=== PATIENT | female | born 1995 | race Caucasian/White ===

== ENCOUNTER → 2017-09-23 | Outpatient (CLI) | payer OTHER ==
[~2017-09-23] MED LIST: LEVO50TA4 PO
[2017-09-23 19:07] LABS: BASO % 0.7 % (0.0-1.0); EOS # 0.2 10^3/uL (0.0-0.50); EOS % 2.6 % (0.0-3.0); IMMATURE GRANULOCYTE % 0.7 % (0-0); LYMPH # 1.9 10^3/uL (1.5-6.5); LYMPH % 33.3 % (24.0-44.0); MEAN CORPUSCULAR HGB CONC 32.7 g/dl (32.0-36.5); MEAN CORPUSCULAR VOLUME 88.5 fl (80.0-96.0); MONO # 0.5 10^3/uL (0.0-0.8); MONO % 8.4 % (0.0-5.0); NEUTROPHILS # 3.1 10^3/uL (1.8-7.7); NEUTROPHILS % 54.3 % (36.0-66.0); PLATELET COUNT, AUTOMATED 282 10^3/uL (150-450); WHITE BLOOD COUNT 5.7 10^3/uL (4.0-10.0)
[2017-09-23 19:15] LABS: ALBUMIN 3.2 GM/DL (3.2-5.2); ALBUMIN/GLOBULIN RATIO 0.94 (1.00-1.93); ALKALINE PHOSPHATASE 63 U/L (45-117); ALT/SGPT 20 U/L (12-78); ANION GAP 6 MEQ/L (8-16); AST/SGOT 13 U/L (7-37); BILIRUBIN,TOTAL 0.2 MG/DL (0.2-1.0); BLOOD UREA NITROGEN 19 MG/DL (7-18); CARBON DIOXIDE LEVEL 26 MEQ/L (21-32); CHLORIDE LEVEL 107 MEQ/L (98-107); CHOLESTEROL LEVEL 182 MG/DL (<200); CREATININE FOR GFR 0.83 MG/DL (0.55-1.02); FERRITIN 8 NG/ML (8-252); GLOMERULAR FILTRATION RATE > 60.0 (>60); GLUCOSE, FASTING 103 MG/DL (70-105); PERCENT SATURATION 8.9 % (13.2-45.0); POTASSIUM SERUM 4.5 MEQ/L (3.5-5.1); SODIUM LEVEL 139 MEQ/L (136-145); TOTAL IRON BINDING CAPACITY 493 UG/DL (250-450); TOTAL PROTEIN 6.6 GM/DL (6.4-8.2); TRIGLYCERIDES LEVEL 106 MG/DL (<150)
== END ==
LOC: M WUC 09:03
PROVIDERS: ATTEND Physician Assistant
DX: N92.0 Excessive and frequent menstruation with regular cycle (principal); Z13.220 Encounter for screening for lipoid disorders; E03.9 Hypothyroidism, unspecified; Z13.21 Encounter for screening for nutritional disorder

== ENCOUNTER → 2017-10-30 | Outpatient (CLI) | payer OTHER ==
[2017-10-30 12:02] LABS: BASO # 0.1 10^3/uL (0.0-0.2); BASO % 0.8 % (0.0-1.0); EOS # 0.2 10^3/uL (0.0-0.50); EOS % 2.8 % (0.0-3.0); IMMATURE GRANULOCYTE % 1.3 % (0-0); LYMPH # 2.1 10^3/uL (1.5-6.5); LYMPH % 32.7 % (24.0-44.0); MEAN CORPUSCULAR HGB CONC 33.3 g/dl (32.0-36.5); MEAN CORPUSCULAR VOLUME 87.2 fl (80.0-96.0); MONO # 0.5 10^3/uL (0.0-0.8); MONO % 8.5 % (0.0-5.0); NEUTROPHILS # 3.4 10^3/uL (1.8-7.7); NEUTROPHILS % 53.9 % (36.0-66.0); PLATELET COUNT, AUTOMATED 291 10^3/uL (150-450); RED CELL DISTRIBUTION WIDTH 13.5 % (11.5-14.5); WHITE BLOOD COUNT 6.3 10^3/uL (4.0-10.0)
[2017-10-30 12:24] LABS: ALBUMIN 3.6 GM/DL (3.2-5.2); ALBUMIN/GLOBULIN RATIO 0.95 (1.00-1.93); ALKALINE PHOSPHATASE 78 U/L (45-117); ALT/SGPT 30 U/L (12-78); ANION GAP 4 MEQ/L (8-16); AST/SGOT 19 U/L (7-37); BILIRUBIN,TOTAL 0.2 MG/DL (0.2-1.0); BLOOD UREA NITROGEN 15 MG/DL (7-18); CALCIUM LEVEL 8.8 MG/DL (8.5-10.1); CARBON DIOXIDE LEVEL 31 MEQ/L (21-32); CHLORIDE LEVEL 104 MEQ/L (98-107); CREATININE FOR GFR 0.78 MG/DL (0.55-1.02); FERRITIN 11 NG/ML (8-252); FREE T4 1.11 NG/DL (0.76-1.46); GLOMERULAR FILTRATION RATE > 60.0 (>60); GLUCOSE, FASTING 99 MG/DL (70-105); PERCENT SATURATION 11.8 % (13.2-45.0); POTASSIUM SERUM 4.6 MEQ/L (3.5-5.1); SODIUM LEVEL 139 MEQ/L (136-145); TOTAL IRON BINDING CAPACITY 499 UG/DL (250-450); TOTAL PROTEIN 7.4 GM/DL (6.4-8.2)
== END ==
LOC: M WUC 09:49
PROVIDERS: ATTEND Physician Assistant
DX: D50.9 Iron deficiency anemia, unspecified (principal); E03.9 Hypothyroidism, unspecified

== ENCOUNTER → 2020-07-31 | Outpatient (CLI) | payer OTHER ==
[2020-07-31 09:28] LABS: BASO % 0.4 % (0.0-1.0); EOS # 0.1 10^3/uL (0.0-0.5); EOS % 1.7 % (0.0-3.0); HEMATOCRIT 40.1 % (36.0-47.0); HEMOGLOBIN 13.5 g/dl (12.0-15.5); LYMPH # 1.9 10^3/uL (1.5-5.0); LYMPH % 36.9 % (24.0-44.0); MEAN CORPUSCULAR HGB CONC 33.7 g/dl (32.0-36.5); MEAN CORPUSCULAR VOLUME 86.1 fl (80.0-96.0); MONO # 0.4 10^3/uL (0.0-0.8); MONO % 7.9 % (0.0-5.0); NEUTROPHILS # 2.7 10^3/uL (1.5-8.5); NEUTROPHILS % 52.1 % (36.0-66.0); PLATELET COUNT, AUTOMATED 264 10^3/uL (150-450); RED BLOOD COUNT 4.66 10^6/uL (4.00-5.40); WHITE BLOOD COUNT 5.2 10^3/uL (4.0-10.0)
[2020-07-31 10:08] LABS: ALBUMIN 3.4 GM/DL (3.2-5.2); ALT/SGPT 27 U/L (12-78); BILIRUBIN,TOTAL 0.3 MG/DL (0.2-1.0); BLOOD UREA NITROGEN 13 MG/DL (7-18); CARBON DIOXIDE LEVEL 26 MEQ/L (21-32); CHLORIDE LEVEL 109 MEQ/L (98-107); CREATININE FOR GFR 0.76 MG/DL (0.55-1.30); FREE T4 1.27 NG/DL (0.76-1.46); GLOMERULAR FILTRATION RATE > 60.0 (>60); GLUCOSE, FASTING 94 MG/DL (70-100); POTASSIUM SERUM 4.3 MEQ/L (3.5-5.1); SODIUM LEVEL 141 MEQ/L (136-145); THYROID STIMULATING HORMONE 0.916 uIU/ML (0.358-3.740); TOTAL PROTEIN 6.9 GM/DL (6.4-8.2)
== END ==
LOC: M LAB 08:39
PROVIDERS: ATTEND Physician Assistant
DX: E03.9 Hypothyroidism, unspecified (principal)

== ENCOUNTER → 2020-11-13 | Outpatient (CLI) | payer BC ==
[2020-11-13 09:41] LABS: BASO % 0.4 % (0.0-1.0); EOS # 0.1 10^3/uL (0.0-0.5); EOS % 1.3 % (0.0-3.0); HEMATOCRIT 41.8 % (36.0-47.0); HEMOGLOBIN 13.9 g/dl (12.0-15.5); LYMPH # 1.8 10^3/uL (1.5-5.0); LYMPH % 40.8 % (24.0-44.0); MEAN CORPUSCULAR HEMOGLOBIN 28.8 pg (27.0-33.0); MEAN CORPUSCULAR HGB CONC 33.3 g/dl (32.0-36.5); MEAN CORPUSCULAR VOLUME 86.7 fl (80.0-96.0); MONO # 0.4 10^3/uL (0.0-0.8); MONO % 8.2 % (0.0-5.0); NEUTROPHILS # 2.2 10^3/uL (1.5-8.5); NEUTROPHILS % 49.1 % (36.0-66.0); PLATELET COUNT, AUTOMATED 263 10^3/uL (150-450); RED BLOOD COUNT 4.82 10^6/uL (4.00-5.40); WHITE BLOOD COUNT 4.5 10^3/uL (4.0-10.0)
[2020-11-13 10:46] LABS: ALBUMIN 3.6 GM/DL (3.2-5.2); ALT/SGPT 26 U/L (12-78); BILIRUBIN,TOTAL 0.4 MG/DL (0.2-1.0); BLOOD UREA NITROGEN 10 MG/DL (7-18); CALCIUM LEVEL 9.3 MG/DL (8.5-10.1); CARBON DIOXIDE LEVEL 24 MEQ/L (21-32); CHLORIDE LEVEL 107 MEQ/L (98-107); CREATININE FOR GFR 0.82 MG/DL (0.55-1.30); FREE T4 1.37 NG/DL (0.76-1.46); GLOMERULAR FILTRATION RATE > 60.0 (>60); GLUCOSE, FASTING 95 MG/DL (70-100); POTASSIUM SERUM 4.3 MEQ/L (3.5-5.1); SODIUM LEVEL 138 MEQ/L (136-145); THYROID STIMULATING HORMONE 0.047 uIU/ML (0.358-3.740); TOTAL PROTEIN 6.8 GM/DL (6.4-8.2)
[2020-11-15 13:27] LABS: THYROID PEROXIDASE ANTIBODY > 1300.0 U/ML (<60.0)
== END ==
LOC: M LAB 08:39
PROVIDERS: ATTEND Physician Assistant
DX: E03.9 Hypothyroidism, unspecified (principal)

== ENCOUNTER 2020-12-03 19:22 | Emergency (ER) | payer BC ==
[~2020-12-03] VITALS: Ht 175.3 cm; Wt 104.5 kg
--- OUTSIDE RECORDS SUMMARY | 2020-12-03 19:29 | CCD | Continuity of Care Document ---
Author Mulu Oh [place] [address] Phone [phone] Care Team Providers Care Civil Engineering Professional Name Role Phone Isi Mitchell D.O. AUTM [phone] Problems Active Problems Provider Date Vitamin D deficiency SHIRA Mendez Onset: 10/21/2020 Hypothyroidism SHIRA Mendez Onset: 07/21/2020 Social History Type Date Description Comments Sex Unknown ETOH Use Currently consumes alcohol 0-4 p er day, 2x per week Tobacco Use Start: Unknown Patient has never smoked Recreational Drug Use Denies Drug Use Smoking Status Reviewed: 08/02/20 Patient has never smoked Exercise Type/Frequency Exercises regularly Sun Exposure Uses sunscreen Seat Belt/Car Seat Always uses seat belt Allergies, Adverse Reactions, Alerts Active Allergies Reaction Severity Comments Date Penicillin Hives 07/01/2020 Sulfa Hives 07/01/2020 Cats Difficulty breathing, Wheezing 07/21/2020 Medications Active Medications SIG Qnty Indications Ordering Provide r Date Vitamin D (Ergocalciferol) 1.25mg (50435 Ut) Capsules 1 capsule weekly for 12 weeks 12caps E55.9 Zach Mitchell D.O. 10/21/2020 Vitamin D3 Super Strength 50mcg (2000 Ut) Tablets 1 by mouth every day 90tabs Isi Mitchell D.O. 08/02/2020 [place] 3-0.03mg Tablets 1 by mouth every day 84tabs Isi Mitchell D.O. 00 / Levothyroxine Sodium 150mcg Tablet s take one tablet by mouth daily on an empty stomach 90tabs [place] Barrios.O. Valacyclovir HCL 500mg Tablets 1 by mouth every day 90tabs Gerry BarriosOMeena Immunizations Description No Information Available Vital Signs Date Vital Result Comment 10/21/2020 3:33pm BP Systolic 130 mmHg BP Diastolic 86 mmHg Height 68.4 inches 5'8.40" Weight 230.12 lb BMI (Body Mass Index) 34.6 kg/m2 Heart Rate 89 /min Respiratory Rate 18 /min Body Temperature 99.0 F O2 % BldC Oximetry 97 % [place] Body Weight 140 lb 08/02/2020 2:49pm BP Systolic 128 mmHg BP Diastolic 80 mmHg Height 68.4 inches 5'8.40" Weight 224.12 lb BMI (Body Mass Index) 33.7 kg/m2 Heart Rate 75 /min Respiratory Rate 16 /min Body Temperature 98.1 F O2 % BldC Oximetry 98 % [place] Body Weight 140 lb Results Test Acquired Date Facility Test Result H/L Range Note Image-Guided Pap W Age-Based SCR W CT/NG 08/02/2020 [facility] Comment (SEE NOTE) 1 Thinprep Tis Pap Reflex HPV Mrna E6/E7 08/02/2020 [facility] Report Status: DNR Normal Clinical Information: (SEE NOTE) Normal 2 LMP: (SEE NOTE) Normal 3 Prev. Pap: (SEE NOTE) Normal 4 Prev. BX: None given Normal Source: (SEE NOTE) Normal 5 Statement Of Adequacy: (SEE NOTE) Normal 6 General Categorization: DNR Normal Interpretation/Result: (SEE NOTE) Normal 7 Infection: DNR Normal Comment: (SEE NOTE) Normal 8 Inbound Customer Service Representative: (SEE NOTE) Normal 9 Review Inbound Customer Service Representative: DNR Normal Pathologist: DNR Normal Comment (SEE NOTE) 10 Chlamydia/N. Gonorrhoeae Rna, Tma, Uroge 08/02/2020 [facility] Chlamydia Trachomatis Rna, Tma, Urogenital NOT DETECTED Normal Not Detected Neisseria Gonorrhoeae Rna, Tma, Urogenital NOT DETECTED Normal Not Detected Comment (SEE NOTE) 11 Laboratory test finding 08/02/2020 [facility] Enhanced PDF Report [id number] SEE IMAGE CBC With Differential 07/31/[address] [id number] [phone] White Blood Count 5.2 10 Normal 4.0-10.0 Red Blood Count 4.66 10 Normal 4.00-5.40 Hemoglobin 13.5 g/dL Normal 12.0-15.5 Hematocrit 40.1 % Normal 36.0-47.0 Mean Corpuscular Volume 86.1 fl Normal 80.0-96.0 Mean Corpuscular Hemoglobin 29.0 pg Normal 27.0-33.0 Mean Corpuscular HGB Conc 33.7 g/dL Normal 32.0-36.5 Red Cell Distribution Width 12.5 % Normal 11.5-14.5 Platelet Count, Automated 264 10 Normal 150-450 Neutrophils % 52.1 % Normal 36.0-66.0 Lymph % 36.9 % Normal 24.0-44.0 [place] % 7.9 % High 0.0-5.0 Eos % 1.7 % Normal 0.0-3.0 Baso % 0.4 % Normal 0.0-1.0 Immature Granulocyte % 1.0 % Normal 0-3.0 Nucleated Red Blood Cell % 0.0 % Normal 0-0 Neutrophils # 2.7 10 Normal 1.5-8.5 Lymph # 1.9 10 Normal 1.5-5.0 [place] # 0.4 10 Normal 0.0-0.8 Eos # 0.1 10 Normal 0.0-0.5 Baso # 0.0 10 Normal 0.0-0.2 Comprehensive Metabolic Profil 07/31/[address] [address] [phone] Glucose, Fasting 94 mg/dL Normal 70-100 Blood Urea Nitrogen 13 mg/dL Normal 7-18 Creatinine For GFR 0.76 mg/dL Normal 0.55-1.30 Glomerular Filtration Rate > 60.0 Normal >60 1 2 Sodium Level 141 mEq/L Normal 136-145 Potassium Serum 4.3 mEq/L Normal 3.5-5.1 Chloride Level 109 mEq/L High 98-107 Carbon Dioxide Level 26 mEq/L Normal 21-32 Anion Gap 6 mEq/L Low 8-16 Calcium Level 9.0 mg/dL Normal 8.5-10.1 Ast/Sgot 15 U/L Normal 7-37 Alt/SGPT 27 U/L Normal 12-78 Alkaline Phosphatase 73 U/L Normal 45-117 Bilirubin,Total 0.3 mg/dL Normal 0.2-1.0 Total Protein 6.9 GM/DL Normal 6.4-8.2 Albumin 3.4 GM/DL Normal 3.2-5.2 Albumin/Globulin Ratio 1.0 Low 1.2-2.2 Laboratory test finding 07/31/2020 [facility] [address] [place] [address] [phone] Total 25(Oh) Vitamin D 28.0 NG/ML Low 30.0-100. 0 FT4&TSH Panel 07/31/2020 [facility] [address] [place] [address] [phone] Thyroid Stimulating Hormone 0.916 uIU/ML Normal 0. 358-3.740 Free T4 1.27 ng/dL Normal 0.76-1.46 1 This order for age-based cer vical cancer and STI screening follows ACOG guidelines(PB 168, 140, [id number]). See individual assays for performing site location. 2 None given 3 None given 4 None given 5 Cervix, Endocervix 6 Satisfactory for evaluation. Endocervical/transformation zone component present. 7 Negative for intraepithelial lesion or malignancy. 8 This Pap test has been evalu ated with computer assisted technology. 9 BH, CT(ASCP) CT screening lo cation: [facility], [address] [place] [address]. 10 EXPLANATORY NOTE: The Pap is a screening test for cervical cancer. It is not a diagnostic test and is subject to false negative and false positive results. It is most reliable when a satisfactory sample, regularly obtained, is submitted with relevant clinical findings and history, and when the Pap result is evaluated along with historic and current clinical information. 11 The analytical performance c haracteristics of this assay, when used to test SurePath(TM) specimens have been determined by [facility]. The modifications have not been cleared or approved by the FDA. This assay has been validated pursuant to the CLIA regulations and is used for clinical purposes. For additional information, please refer to https://education.[employer]/faq/QFA625 (This link is being provided for informa tion/ educational purposes only.) 12 Units are mL/min/1.73 m2 Chronic Kidney Disease Staging per NKF: Stage I & II GFR >=60 Normal to Mildly Decreased Stage III GFR 30-59 Moderately Decreased Stage IV GFR 15-29 Severely Decreased Stage V GFR <15 Very Little GFR Left ESRD GFR <15 on S[place]TTE Procedures Description No Information Available Medical Devices Description No Information Available Encounters Type Date Location Provider Dx Diagnosis Office Visit 10/21/2020 3:40p [facility] SHIRA Mckinley E03.9 Hypothyroidism, unspecified E55.9 Vitamin D deficiency, unspec ified 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 08/02/2020 E55.9 Vitamin D deficiency, unspecifie d Isi Mitchell D.O. 07/21/2020 S93.401A Sprain of unspecifie d ligament of right ankle, initial encounter SHIRA Mendez 07/21/2020 E03.9 Hypothyroidism, unspecified SHIRA Gomez 07/21/2020 A60.04 Herpesviral vulvovaginitis SHIRA Cutler Plan of Treatment Future Appointment(s):* 04/21/2021 4:00 pm - SHIRA Mendez at [facility] 10/21/2020 - SHIRA Mendez* E03.9 Hypothyroidism, unspecified* New Labs:* CBC With Differential, Scheduled: 10/21/20 * Comprehensive Metabolic Profil, Scheduled: 10/21/20 * FT4&TSH Panel, Scheduled: 10/21/20 * Thyroglob QNT Incl Thyrogl Tiffanie, Scheduled: 10/21/20 * Microsomal Antibodies Thyroid Tpo, Scheduled: 10/21/20 * Comments:* We will Check thyroid levels to look into recent cause of fatigue. * Follow up:* 6 months * E55.9 Vitamin D deficiency, unspecified* New Medication:* Vitamin D (Ergocalciferol) 1.25 mg (38470 Ut) - 1 capsule weekly for 12 weeks * Comments:* After you take once a week vitamin D please take a Vitamin D3 2,000 - 5,000. 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 We can prescribe Xanax as needed for acute stress of [facility] exam. Functional Status Description No Information Available Mental Status Description No Information Available Referrals Description No Information Available
--- OUTSIDE RECORDS SUMMARY | 2020-12-03 19:29 | CCD ---
Author Author [facility] Organization [facility] Address Unknown Phone Unavailable Care Team Providers Care Manager Technical Services Name Role Phone Mt Shah MD Unavailable Unavailable Mt Shah MD Unavailable Unavailable Mt Shah MD Unavailable Unavailable Mt Shah MD Unavailable Unavailable Mt Shah MD Unavailable Unavailable Mt Shah MD Unavailable Unavailable Mt Shah MD Unavailable Unavailable Mt Shah MD Unavailable Unavailable Mt Shah MD Unavailable Unavailable Mt Shah MD Unavailable Unavailable Mt Shah MD Unavailable Unavailable Mt Shah MD Unavailable Unavailable Mt Shah MD Unavailable Unavailable Mt Shah MD Unavailable Unavailable Mt Shah MD Unavailable Unavailable Mt Shah MD Unavailable Unavailable Mt Shah MD Unavailable Unavailable Mt Shah MD Unavailable Unavailable Mt Shah MD Unavailable Unavailable Mt Shah MD Unavailable Unavailable Mt Shah MD Unavailable Unavailable Mt Shah MD Unavailable Unavailable Mt Shah MD Unavailable Unavailable Mt Shah MD Unavailable Unavailable Mt Shah MD Unavailable Unavailable Mt Shah MD Unavailable Unavailable Mt Shah MD Unavailable Unavailable Mt Shah MD Unavailable Unavailable Mt Shah MD Unavailable Unavailable Mt Shah MD Unavailable Unavailable Mt Shah MD Unavailable Unavailable Mt Shah MD Unavailable Unavailable Mt Shah MD Unavailable Unavailable Mt Shah MD Unavailable Unavailable Mt Shah MD Unavailable Unavailable Mt Shah MD Unavailable Unavailable Mt Shah MD Unavailable Unavailable Mt Shah MD Unavailable Unavailable Mt Shah MD Unavailable Unavailable Mt Shah MD Unavailable Unavailable Mt Shah MD Unavailable Unavailable Mt Shah MD Unavailable Unavailable Mt Shah MD Unavailable Unavailable Mt Shah MD Unavailable Unavailable Mt Shah MD Unavailable Unavailable Mt Shah MD Unavailable Unavailable Mt Shah MD Unavailable Unavailable Mt Shah MD Unavailable Unavailable Mt Shah MD Unavailable Unavailable Mt Shah MD Unavailable Unavailable Mt Shah MD Unavailable Unavailable Mt Shah MD Unavailable Unavailable Mt Shah MD Unavailable Unavailable Mt Shah MD Unavailable Unavailable Mt Shah MD Unavailable Unavailable Mt Shah MD Unavailable Unavailable Mt Shah MD Unavailable Unavailable Mt Shah MD Unavailable Unavailable Mt Shah MD Unavailable Unavailable Mt Shah MD Unavailable Unavailable Mt Shah MD Unavailable Unavailable Mt Shah MD Unavailable Unavailable Mt Shah MD Unavailable Unavailable Mt Shah MD Unavailable Unavailable Mt Shah MD Unavailable Unavailable Mt Shah MD Unavailable Unavailable Mt Shah MD Unavailable Unavailable Mt Shah MD Unavailable Unavailable Mt Shah MD Unavailable Unavailable Mt Shah MD Unavailable Unavailable Mt Shah MD Unavailable Unavailable Mt Shah MD Unavailable Unavailable Mt Shah MD Unavailable Unavailable Mt Shah MD Unavailable Unavailable Mt Shah MD Unavailable Unavailable Mt Shah MD Unavailable Unavailable Mt Shah MD Unavailable Unavailable Mt Shah MD Unavailable Unavailable Mt Shah MD Unavailable Unavailable Mt Shah MD Unavailable Unavailable Mt Shah MD Unavailable Unavailable Mt hSah MD Unavailable Unavailable Mt Shah MD Unavailable Unavailable Mt Shah MD Unavailable Unavailable Mt Shah MD Unavailable Unavailable Mt Shah MD Unavailable Unavailable Mt Shah MD Unavailable Unavailable Mt Shah MD Unavailable Unavailable Mt Shah MD Unavailable Unavailable PEDRO LUIS-NEVAEH, YEN DO Unavailable Unavailable PEDRO LUIS-NEVAEH, YEN DO Unavailable Unavailable PEDRO LUIS-NEVAEH, YEN DO Unavailable Unavailable PEDRO LUIS-NEVAEH, YEN DO Unavailable Unavailable PEDRO LUIS-NEVAEH, YEN DO Unavailable Unavailable PEDRO LUIS-NEVAEH, YEN DO Unavailable Unavailable PEDRO LUIS-NEVAEH, YEN DO Unavailable Unavailable PEDRO LUIS-NEVAEH, YEN DO Unavailable Unavailable PEDRO LUIS-NEVAEH, YEN DO Unavailable Unavailable PEDRO LUIS-NEVAEH, YEN DO Unavailable Unavailable PEDRO LUIS-NEVAEH, YEN DO Unavailable Unavailable PEDRO LUIS-NEVAEH, YEN DO Unavailable Unavailable PEDRO LUIS-NEVAEH, YEN DO Unavailable Unavailable PEDRO LUIS-NEVAEH, YEN DO Unavailable Unavailable PEDRO LUIS-NEVAEH, YEN DO Unavailable Unavailable PEDRO LUIS-NEVAEH, YEN DO Unavailable Unavailable PEDRO LUIS-NEVAEH, YEN DO Unavailable Unavailable PEDRO LUIS-NEVAEH, YEN DO Unavailable Unavailable PEDRO LUIS-NEVAEH, YEN DO Unavailable Unavailable PEDRO LUIS-NEVAEH, YEN DO Unavailable Unavailable PEDRO LUIS-NEVAEH, YEN DO Unavailable Unavailable PEDRO LUIS-NEVAEH, YEN DO Unavailable Unavailable PEDRO LUIS-NEVAEH, YEN DO Unavailable Unavailable PEDRO LUIS-NEVAEH, YEN DO Unavailable Unavailable PEDRO LUIS-NEVAEH, YEN DO Unavailable Unavailable PEDRO LUIS-NEVAEH, YEN DO Unavailable Unavailable PEDRO LUIS-NEVAEH, YEN DO Unavailable Unavailable PEDRO LUIS-NEVAEH, YEN DO Unavailable Unavailable PEDRO LUIS-NEVAEH, YEN DO Unavailable Unavailable PEDRO LUIS-NEVAEH, YEN DO Unavailable Unavailable PEDRO LUIS-NEVAEH, YEN DO Unavailable Unavailable PEDRO LUIS-NEVAEH, YEN DO Unavailable Unavailable PEDRO LUIS-NEVAEH, YEN DO Unavailable Unavailable PEDRO LUIS-NEVAEH, YEN DO Unavailable Unavailable PEDRO LUIS-NEVAEH, YEN DO Unavailable Unavailable PEDRO LUIS-NEVAEH, YEN DO Unavailable Unavailable PEDRO LUIS-NEVAEH, YEN DO Unavailable Unavailable PEDRO LUIS-NEVAEH, YEN DO Unavailable Unavailable PEDRO LUIS-NEVAEH, YEN DO Unavailable Unavailable PEDRO LUIS-NEVAEH, YEN DO Unavailable Unavailable PEDRO LUIS-NEVAEH, YEN DO Unavailable Unavailable PEDRO LUIS-NEVAEH, YEN DO Unavailable Unavailable PEDRO LUIS-NEVAEH, YEN DO Unavailable Unavailable PEDRO LUIS-NEVAEH, YEN DO Unavailable Unavailable PEDRO LUIS-NEVAEH, YEN DO Unavailable Unavailable PEDRO LUIS-NEVAEH, YEN DO Unavailable Unavailable PEDRO LUIS-NEVAEH, YEN DO Unavailable Unavailable PEDRO LUIS-NEVAEH, YEN DO Unavailable Unavailable PEDRO LUIS-NEVAEH, YEN DO Unavailable Unavailable PEDRO LUIS-NEVAEH, YEN DO Unavailable Unavailable PEDRO LUIS-NEVAEH, YEN DO Unavailable Unavailable PEDRO LUIS-NEVAEH, YEN DO Unavailable Unavailable PEDRO LUIS-NEVAEH, YEN DO Unavailable Unavailable PEDRO LUIS-NEVAEH, YEN DO Unavailable Unavailable PEDRO LUIS-NEVAEH, YEN DO Unavailable Unavailable PEDRO LUIS-NEVAEH, YEN DO Unavailable Unavailable PEDRO LUIS-NEVAEH, YEN DO Unavailable Unavailable PEDRO LUIS-NEVAEH, YEN DO Unavailable Unavailable PEDRO LUIS-NEVAEH, YEN DO Unavailable Unavailable PEDRO LUIS-NEVAEH, YEN DO Unavailable Unavailable PEDRO LUIS-NEVAEH, YEN DO Unavailable Unavailable PEDRO LUIS-NEVAEH, YEN DO Unavailable Unavailable PEDRO LUIS-NEVAEH, YEN DO Unavailable Unavailable PEDRO LUIS-NEVAEH, YEN DO Unavailable Unavailable PEDRO LUIS-NEVAEH, YEN DO Unavailable Unavailable PEDRO LUIS-NEVAEH, YEN DO Unavailable Unavailable PEDRO LUIS-NEVAEH, YEN DO Unavailable Unavailable PEDRO LUIS-NEVAEH, YEN DO Unavailable Unavailable PEDRO LUIS-NEVAEH, YEN DO Unavailable Unavailable PEDRO LUIS-NEVAEH, YEN DO Unavailable Unavailable PEDRO LUIS-NEVAEH, YEN DO Unavailable Unavailable PEDRO LUIS-NEVAEH, YEN DO Unavailable Unavailable PEDRO LUIS-NEVAEH, YEN DO Unavailable Unavailable PEDRO LUIS-NEVAEH, YEN DO Unavailable Unavailable PEDRO LUIS-NEVAEH, YEN DO Unavailable Unavailable PEDRO LUIS-NEVAEH, YEN DO Unavailable Unavailable PEDRO LUIS-NEVAEH, YEN DO Unavailable Unavailable PEDRO LUIS-NEVAEH, YEN DO Unavailable Unavailable PEDRO LUIS-NEVAEH, YEN DO Unavailable Unavailable PEDRO LUIS-NEVAEH, YEN DO Unavailable Unavailable PEDRO LUIS-NEVAEH, YEN DO Unavailable Unavailable PEDRO LUIS-NEVAEH, YEN DO Unavailable Unavailable Sen-Centner, Blanche Unavailable Unavailable Sen-Centner, Blanche Unavailable Unavailable Sen-Centner, Blanche Unavailable Unavailable Sen-Centner, Blanche Unavailable Unavailable Sen-Centner, Blanche Unavailable Unavailable Sen-Centner, Blanche Unavailable Unavailable Sen-Centner, Blanche Unavailable Unavailable Sen-Centner, Blanche Unavailable Unavailable Sen-Centner, Blanche Unavailable Unavailable Sen-Centner, Blanche Unavailable Unavailable O'bert, A Ziyad PA Unavailable Unavailable O'bert, A Ziyad PA Unavailable Unavailable O'bert, A Ziyad PA Unavailable Unavailable O'bert, A Ziyad PA Unavailable Unavailable O'bert, A Ziyad PA Unavailable Unavailable O'bert, A Ziyad PA Unavailable Unavailable O'bert, A Ziyad PA Unavailable Unavailable O'bert, A Ziyad PA Unavailable Unavailable O'bert, A Ziyad PA Unavailable Unavailable O'bert, A Ziyad PA Unavailable Unavailable O'bert, A Ziyad PA Unavailable Unavailable O'bert, A Ziyad PA Unavailable Unavailable O'bert, A Ziyad PA Unavailable Unavailable O'bert, A Ziyad PA Unavailable Unavailable O'bert, A Ziyad PA Unavailable Unavailable O'bert, A Ziyad PA Unavailable Unavailable O'bert, A Ziyad PA Unavailable Unavailable O'bert, A Ziyad PA Unavailable Unavailable O'bert, A Ziyad PA Unavailable Unavailable O'bert, A Ziyad PA Unavailable Unavailable O'bert, A Ziyad PA Unavailable Unavailable O'bert, A Ziyad PA Unavailable Unavailable O'bert, A Ziyad PA Unavailable Unavailable O'bert, A Ziyad PA Unavailable Unavailable O'bert, A Ziyad PA Unavailable Unavailable O'bert, A Ziyad PA Unavailable Unavailable O'bert, A Ziyad PA Unavailable Unavailable O'bert, A Ziyad PA Unavailable Unavailable O'bert, A Ziyad PA Unavailable Unavailable O'bert, A Ziyad PA Unavailable Unavailable O'bert, A Ziyad PA Unavailable Unavailable O'bert, A Ziyad PA Unavailable Unavailable Re-disclosure Warning The records that you are about to access may contain information from federally-assisted alcohol or drug abuse programs. If such information is present, then the following federally mandated warning applies: This information has been disclosed to you from records protected by federal confidentiality rules (42 CFR part 2). The federal rules prohibit you from making any further disclosure of this information unless further disclosure is expressly permitted by the written consent of the person to whom it pertains or as otherwise permitted by 42 CFR part 2. A general authorization for the release of medical or other information is NOT sufficient for this purpose. The Federal rules restrict any use of the information to criminally investigate or prosecute any alcohol or drug abuse patient.The records that you are about to access may contain highly sensitive health information, the redisclosure of which is protected by Article 27-F of the [facility] Public Health law. If you continue you may have access to information: Regarding HIV / AIDS; Provided by facilities licensed or operated by the [facility] Office of Mental Health; or Provided by the [facility] Office for People With Developmental Disabilities. If such information is present, then the following [facility] mandated warning applies: This information has been disclosed to you from confidential records which are protected by state law. State law prohibits you from making any further disclosure of this information without the specific written consent of the person to whom it pertains, or as otherwise permitted by law. Any unauthorized further disclosure in violation of state law may result in a fine or alf sentence or both. A general authorization for the release of medical or other information is NOT sufficient authorization for further disc losure. Allergies and Adverse Reactions Type Description Substance Reaction Status Data Source(s ) Allergy to substance Allergy to substance Allergy to substance [facility] ([facility]) Allergy to substance Allergy to substance Allergy to substance [facility] ([facility]) Allergy to substance Allergy to substance Allergy to substance [facility] ([facility]) Encounters Encounter Providers Location Date Indications Data Source(s ) LEATHA De LeónC: [address] [place] [address], Ph. Attender: Blanche Hoffman [facility] Medical 11/25/2020 12:00:00 AM EST [facility] ([facility]) Fabiano Shah MD: [address] [place] [address], Ph. Attender: Fabiano Shah MD [facility] Medical 10/27/2020 12:00:00 AM EST [place] ([facility]) Fabiano Shah MD: [address] [place] [address], Ph. Attender: Fabiano Shah MD [facility] Medical 10/27/2020 12:00:00 AM EST [place] ([facility]) Outpatient Attender: Ziyad SILVA [facility] 10/21/2020 02:40:00 PM EST [facility] ([facility]) Fabiano Shah MD: [address] [place] [address], Ph. Attender: Fabiano Shah MD [facility] Medical 09/08/2020 12:00:00 AM EST [place] ([facility]) Fabiano Shah MD: [address] [place] [address], Ph. Attender: Fabiano Shah MD [facility] Medical 09/08/2020 12:00:00 AM EST [place] ([facility]) Fabiano Shah MD: [address] [place] [address], Ph. Attender: Fabiano Shah MD [facility] Medical 09/08/2020 12:00:00 AM EST [place] ([facility]) Outpatient Attender: YEN MTZ DO [facility] 08/02/2020 03:00:00 PM EDT [facility] ([facility]) Outpatient Attender: Ziyad SILVA [facility] 07/21/2020 03:00:00 PM EDT [facility] ([facility]) Immunizations Vaccine Date Status Description Data Source(s) COVID-19, mRNA, LNP-S, PF, 100 mcg/0.5 mL dose 11/25/2020 09 :21:19 AM EST completed 10.5 mL [facility] ([facility]) COVID-19, mRNA, LNP-S, PF, 100 mcg/0.5 mL dose 10/27/2020 03 :37:29 PM EST completed .5 mL [facility] ([facility]) COVID-19, mRNA, LNP-S, PF, 100 mcg/0.5 mL dose 10/27/2020 03 :37:29 PM EST completed .5 mL [facility] ([facility]) Medications Medication Brand Name Start Date Product Form Dose Route Admi nistrative Instructions Pharmacy Instructions Status Indications Reaction Description Data Source(s) Levothyroxine Sodium 0.137 MG Oral Tablet Levothyroxine Sodi um 11/17/2020 12:00:00 AM EST ORAL active M [facility] ([facility]) Ergocalciferol 71728 UNT Oral Capsule Vitamin D (Ergocalcife rol) 10/21/2020 12:00:00 AM EST active [facility] ([facility]) Cholecalciferol 2000 UNT Oral Tablet Vitamin D3 Super Streng th 08/02/2020 12:00:00 AM EDT ORAL active M [facility] ([facility]) Insurance Providers Payer name Policy type / Coverage type Policy ID Covered republican ID Covered republican's relationship to buckner Policy Buckner Plan Information [employer] [place] 302/307 [id number] SP [id number] [employer] [place] 302/307 [id number] SP [id number] [place] [employer] [id number] FA2 [id number] [facility] [id number] FA2 [id number] [employer] [place] [facility] O [id number] C [id number] [facility] O [id number] S [id number] Problems, Conditions, and Diagnoses Code Display Name Description Problem Type Effective Dates Data Source(s) 47029945 Vitamin D deficiency Vitamin D deficiency Problem 10/21/2020 12:00:00 AM EST [facility] ([facility]) [id number] Hypothyroidism Hypothyroidism Problem 07/21/2020 12:00: 00 AM EDT [facility] ([facility]) Results ID Date Data Source [id number] 11/13/2020 08:48:00 AM EST [facility] ([facility]) Name Value Range Interpretation Code Description Data Katina rce(s) Supporting Document(s) Thryoglobulin Antibodies (Brad) 2.0 IU/ml 0.0-0.9 Above high wilman l [facility] ([facility]) Thyroglobulin Antibody measured by [facility] [place] [facility] Thyroglobulin May 7.0 ng/mL Normal (applies to non-numeri c results) [facility] ([facility]) <content>This test was developed and its performance characteristics</content>
<content>determined by [facility]. It has not been cleared or approved</content>
<content>by the Food and Drug Admi nistration.</content>
<content>Reference Range:</content>
<content>Pubertal Children</content>
<content>and Adults: <40</content>
<content>According to the National Academy of Clinical Biochemistry,</content>
<content>the reference interval for Thyroglobulin (TG) should be</content>
<content>related to euthyroid patients and not for patients who</content>
<content>underwent thyroidectomy. TG reference intervals for these</content>
<content>patients depend on the residual mass of the thyroid tissue</content>
<content>left after surgery. Establishing a post-operative baseline</content>
<content>is recommended. The assay quantitation limit is 2.0 ng/mL.</content>
<content>Performed at: [facility]</content>
<content>[address] [place] [id number]</content>
<content>Health Associate: Janice Gan MD, Phone: [phone]</content>
<content>Performed at: [facility]</content>
<content>[address] [place] [id number]</content>
<content>Health Associate: Douglas Hooker MD, Phone: [phone]</content>
<content></content> ID Date Data Source [id number] 11/13/2020 08:48:00 AM EST [facility] ([facility]) Name Value Range Interpretation Code Description Data Katina rce(s) Supporting Document(s) Thyroperoxidase Ab [Units/volume] in Serum or Plasma Laboratory test result Above high normal [facility] ([facility]) ID Date Data Source [id number] 11/13/2020 08:48:00 AM EST [facility] ([facility]) Name Value Range Interpretation Code Description Data Katina rce(s) Supporting Document(s) Thyroid Stimulating Hormone 0.047 uIU/ML 0.358-3.740 Below low normal [facility] ([facility]) Free T4 1.37 ng/dL 0.76-1.46 Normal (applies to non-numeric resul ts) [facility] ([facility]) ID Date Data Source [id number] 11/13/2020 08:48:00 AM [facility] Name Value Range Interpretation Code Description Data Katina rce(s) Supporting Document(s) Blood Urea Nitrogen 10 mg/dL 7-18 Normal (applies to non-nume yessica results) [facility]) Glucose, Fasting 95 mg/dL 70-100 Normal (applies to non-numeric results) [facility] ([facility]) Glomerular Filtration Rate Laboratory test result Normal (applies to non- numeric results) [facility] ([facility]) <content>Units are mL/min/1.73 m2</content>
<content></content>
<content>Chronic Kidney Disease Staging per NKF:</content>
<content></content>
<content>Stage I & II GFR >=60 Normal to Mildly Decreased</content>
<content>Stage III GFR 30- 59 Moderately Decreased</content>
<content>Stage IV GFR 15-29 Severely Decreased</content>
<content>Stage V GFR <15 Very Little GFR Left</content>
<content>ESRD GFR <15 on IT RISK AND ASSURANCE SENIOR MANAGER</content>
<content></content> Sodium Level 138 meq/L 136-145 Normal (applies to non-numeric res ults) [facility] ([facility]) Creatinine For GFR 0.82 mg/dL 0.55-1.30 Normal (applies to non -numeric results) [facility] ([facility]) Potassium Serum 4.3 meq/L 3.5-5.1 Normal (applies to non-numeric results) [facility] ([facility]) Chloride Level 107 meq/L 98-107 Normal (applies to non-numeric r esults) [facility] ([facility]) Carbon Dioxide Level 24 meq/L 21-32 Normal (applies to non-num shaw results) [facility] ([facility]) Calcium Level 9.3 mg/dL 8.5-10.1 Normal (applies to non-numeric re sults) [facility] ([facility]) Anion Gap 7 meq/L 8-16 Below low normal [facility] ( [facility] Alkaline Phosphatase 68 U/L 45-117 Normal (applies to non-num shaw results) [facility] ([facility]) Ast/Sgot 17 U/L 7-37 Normal (applies to non-numeric resul ts) [facility] ([facility]) Alt/SGPT 26 U/L 12-78 Normal (applies to non-numeric resul ts) [facility] ([facility]) Bilirubin,Total 0.4 mg/dL 0.2-1.0 Normal (applies to non-numeric results) [facility] ([facility]) Total Protein 6.8 GM/DL 6.4-8.2 Normal (applies to non-numeric re sults) [facility] ([facility]) Albumin 3.6 GM/DL 3.2-5.2 Normal (applies to non-numeric resul ts) [facility] ([facility]) Albumin/Globulin Ratio 1.1 1.2-2.2 Below low normal [facility] ([facility]) ID Date Data Source [id number] 11/13/2020 08:48:00 AM EST [facility] ([facility]) Name Value Range Interpretation Code Description Data Katina rce(s) Supporting Document(s) White Blood Count 4.5 10 4.0-10.0 Normal (applies to non-numeri c results) [facility] ([facility]) Hematocrit 41.8 % 36.0-47.0 Normal (applies to non-numeric resul ts) [facility] ([facility]) Hemoglobin 13.9 g/dL 12.0-15.5 Normal (applies to non-numeric resul ts) [facility] Red Blood Count 4.82 10 4.00-5.40 Normal (applies to non-numeric results) [facility] Mean Corpuscular HGB Conc 33.3 g/dL 32.0-36.5 Normal (applies to non-numeric results) [facility] ([facility]) Mean Corpuscular Volume 86.7 fl 80.0-96.0 Normal ( applies to non-numeric results) [facility] ([facility]) Mean Corpuscular Hemoglobin 28.8 pg 27.0-33.0 Norm al (applies to non-numeric results) [facility] ([facility]) Neutrophils % 49.1 % 36.0-66.0 Normal (applies to non-numeric re sults) [facility] ([facility]) Red Cell Distribution Width 12.5 % 11.5-14.5 Norm al (applies to non-numeric results) [facility] ([facility]) Platelet Count, Automated 263 10 150-450 Normal (applies to non-numeric results) [facility] ([facility]) Eos % 1.3 % 0.0-3.0 Normal (applies to non-numeric resul ts) [facility] ([facility]) Lymph % 40.8 % 24.0-44.0 Normal (applies to non-numeric resul ts) [facility] ([facility]) [place] % 8.2 % 0.0-5.0 Above high normal [facility] ([facility]) Baso % 0.4 % 0.0-1.0 Normal (applies to non-numeric resul ts) [facility] ([facility]) Immature Granulocyte % 0.2 % 0-3.0 Normal (applies to non-n umeric results) [facility] ([facility]) Nucleated Red Blood Cell % 0.0 % 0-0 Normal (applies to n on-numeric results) [facility] ([facility]) Lymph # 1.8 10 1.5-5.0 Normal (applies to non-numeric resul ts) [facility] ([facility]) [place] # 0.4 10 0.0-0.8 Normal (applies to non-numeric resul ts) [facility] ([facility]) Neutrophils # 2.2 10 1.5-8.5 Normal (applies to non-numeric re sults) [facility] ([facility]) Eos # 0.1 10 0.0-0.5 Normal (applies to non-numeric resul ts) [facility] ([facility]) Baso # 0.0 10 0.0-0.2 Normal (applies to non-numeric resul ts) [facility] ([facility]) ID Date Data Source [id number] 09/08/2020 08:20:00 AM EST [facility]) Name Value Range Interpretation Code Description Data Katina rce(s) Supporting Document(s) SARS-CoV-2 (COVID-19) RNA [Presence] in Respiratory specimen by LOPEZ with probe detection not detected not detected Sars Cov 2 RNA [facility]) ID Date Data Source [id number] 09/08/2020 08:20:00 AM [facility] Name Value Range Interpretation Code Description Data Katina rce(s) Supporting Document(s) SARS-CoV-2 (COVID-19) RNA [Presence] in Respiratory specimen by LOPEZ with probe detection not detected not detected Sars Cov 2 RNA [facility]) ID Date Data Source [id number] 08/02/2020 03:16:00 PM EDT [facility] ([facility]) Name Value Range Interpretation Code Description Data Katina rce(s) Supporting Document(s) Laboratory test finding (navigational concept) Laboratory test result [facility] ([facility]) ID Date Data Source [id number] 08/02/2020 03:16:00 PM EDT [facility] ([facility]) Name Value Range Interpretation Code Description Data Katina rce(s) Supporting Document(s) Chlamydia trachomatis rRNA [Presence] in Unspecified specimen by Probe and target amplification method Laboratory test result Normal (a pplies to non- numeric results) [facility]) Neisseria gonorrhoeae rRNA [Presence] in Unspecified specimen by Probe and target amplification method Laboratory test result Normal (a pplies to non- numeric results) [facility] ([facility]) Comment Laboratory test result [facility] ([facility]) The analytical performance characteristi cs of this assay, when used to test SurePath(TM) specimens have been determined by [employer]. The modifications have not been cleared or approved by the FDA. This assay has been validated pursuant to the CLIA regulations and is used for clinical purposes. For additional information, please refer to https://education.[employer]/faq/JJO119 (This link is being provided for informa tion/ educational purposes only.) ID Date Data Source [id number] 08/02/2020 03:16:00 PM EDT [facility] ([facility]) Name Value Range Interpretation Code Description Data Katina rce(s) Supporting Document(s) Service comment Laboratory test result Normal (a pplies to non-numeric results) [facility] ([facility]) Date of previous PAP smear Laboratory test result Normal (applies to non- numeric results) [facility]) None given Last menstrual period start date Laboratory test result Normal (applies to non-numeric results) [facility]) None given Clinical information Laboratory test result Norm al (applies to non-numeric results) [facility]) None given Specimen source [Identifier] in Cervical or vaginal smear or scraping by Cyto stain Laboratory test result Normal (applies to non-numeric results) [facility] ([facility]) Cervix, Endocervix Date of previous biopsy Laboratory test result N ormal (applies to non-numeric results) [facility] ([facility]) Statement of adequacy [Interpretation] o f Cervical or vaginal smear or scraping by Cyto stain Laboratory test result Normal (applies to non-nu meric results) [facility]) Satisfactory for evaluation. Endocervical/transformation zone component present. Microscopic observation [Identifier] in Cervix by Cyto stain Laboratory test result Normal (applies to non-numeric results) [facility] ([facility]) Negative for intraepithelial lesion or m alignancy. General categories [Interpretation] of C ervical or vaginal smear or scraping by Cyto stain Laboratory test result Normal (applies to non-numeric results) [facility] ([facility]) Microorganism identified in Cervical or vaginal smear or scraping by Cyto stain Laboratory test result Normal (applies to non-numeric results) [facility]) Handy Worker who read Cyto stain of Cervical or vaginal smear or scraping Laboratory test result Normal (applies to non-numeric results) [facility]) BH, CT(ASCP) CT screening location: [facility], [address] [place] [address], [place] [address]. Cytology study comment Cervical or vaginal smear or sc raping Cyto stain Laboratory test result Normal (applies to non-numeric results) [facility] ([facility]) This Pap test has been evaluated with XMS Penvision technology. Comment Laboratory test result [facility] ([facility]) EXPLANATORY NOTE: The Pap is a screening test for cervical cancer. It is not a diagnostic test and is subject to false negative and false positive results. It is most reliable when a satisfactory sample, regularly obtained, is submitted with relevant clinical findings and history, and when the Pap result is evaluated along with historic and current clinical information. Handy Worker who read Cyto stain of Cervical or vaginal smear or scraping Laboratory test result Normal (applies to non-numeric results) [facility] ([facility]) Pathologist who read Cyto stain of Cervical or vaginal smear or scraping Laboratory test result Normal (applies to non-numeric results) [facility] ([facility]) ID Date Data Source [id number] 08/02/2020 03:16:00 PM EDT [facility] ([facility]) Name Value Range Interpretation Code Description Data Katina rce(s) Supporting Document(s) Service comment Laboratory test result [facility] ([facility]) This order for age-based cervical cancer and STI screening follows ACOG guidelines(PB 168, 140, OKY248). See individual assays for performing site location. ID Date Data Source [id number] 07/31/2020 08:58:00 AM EDT [facility] ([facility]) Name Value Range Interpretation Code Description Data Katina rce(s) Supporting Document(s) Thyroid Stimulating Hormone 0.916 uIU/ML 0.358-3.740 Norm al (applies to non- numeric results) [facility] ([facility]) Free T4 1.27 ng/dL 0.76-1.46 Normal (applies to non-numeric resul ts) [facility] ([facility]) ID Date Data Source [id number] 07/31/2020 08:58:00 AM EDT [facility] ([facility]) Name Value Range Interpretation Code Description Data Katina rce(s) Supporting Document(s) Calcidiol [Mass/volume] in Serum or Plasma 28.0 ng/mL 30.0- 100.0 Below low normal [facility] ([facility]) ID Date Data Source [id number] 07/31/2020 08:58:00 AM EDT [facility] ([facility]) Name Value Range Interpretation Code Description Data Katina rce(s) Supporting Document(s) Glucose, Fasting 94 mg/dL 70-100 Normal (applies to non-numeric results) [facility] ([facility]) Creatinine For GFR 0.76 mg/dL 0.55-1.30 Normal (applies to non -numeric results) [facility] ([facility]) Blood Urea Nitrogen 13 mg/dL 7-18 Normal (applies to non-nume yessica results) [facility] ([facility]) Glomerular Filtration Rate Laboratory test result Normal (applies to non- numeric results) [facility] ([facility]) <content>Units are mL/min/1.73 m2</content>
<content></content>
<content>Chronic Kidney Disease Staging per NKF:</content>
<content></content>
<content>Stage I & II GFR >=60 Normal to Mildly Decreased</content>
<content>Stage III GFR 30- 59 Moderately Decreased</content>
<content>Stage IV GFR 15-29 Severely Decreased</content>
<content>Stage V GFR <15 Very Little GFR Left</content>
<content>ESRD GFR <15 on IT RISK AND ASSURANCE SENIOR MANAGER</content>
<content></content> Potassium Serum 4.3 meq/L 3.5-5.1 Normal (applies to non-numeric results) [facility] ([facility]) Sodium Level 141 meq/L 136-145 Normal (applies to non-numeric res ults) [facility] ([facility]) Carbon Dioxide Level 26 meq/L 21-32 Normal (applies to non-num shaw results) [facility] ([facility]) Chloride Level 109 meq/L 98-107 Above high normal [facility] ([facility]) Anion Gap 6 meq/L 8-16 Below low normal [facility] ( [facility] Ast/Sgot 15 U/L 7-37 Normal (applies to non-numeric resul ts) [facility] ([facility]) Calcium Level 9.0 mg/dL 8.5-10.1 Normal (applies to non-numeric re sults) [facility] ([facility]) Alt/SGPT 27 U/L 12-78 Normal (applies to non-numeric resul ts) [facility] ([facility]) Total Protein 6.9 GM/DL 6.4-8.2 Normal (applies to non-numeric re sults) [facility] ([facility]) Alkaline Phosphatase 73 U/L 45-117 Normal (applies to non-num shaw results) [facility] ([facility]) Bilirubin,Total 0.3 mg/dL 0.2-1.0 Normal (applies to non-numeric results) [facility] ([facility]) Albumin 3.4 GM/DL 3.2-5.2 Normal (applies to non-numeric resul ts) [facility] ([facility]) Albumin/Globulin Ratio 1.0 1.2-2.2 Below low normal [facility] ([facility]) ID Date Data Source [id number] 07/31/2020 08:58:00 AM EDT [facility] ([facility]) Name Value Range Interpretation Code Description Data Katina rce(s) Supporting Document(s) White Blood Count 5.2 10 4.0-10.0 Normal (applies to non-numeri c results) [facility] ([facility]) Red Blood Count 4.66 10 4.00-5.40 Normal (applies to non-numeric results) [facility] ([facility]) Hematocrit 40.1 % 36.0-47.0 Normal (applies to non-numeric resul ts) [facility] ([facility]) Hemoglobin 13.5 g/dL 12.0-15.5 Normal (applies to non-numeric resul ts) [facility] ([facility]) Mean Corpuscular Hemoglobin 29.0 pg 27.0-33.0 Norm al (applies to non-numeric results) [facility] ([facility]) Mean Corpuscular Volume 86.1 fl 80.0-96.0 Normal ( applies to non-numeric results) [facility] ([facility]) Red Cell Distribution Width 12.5 % 11.5-14.5 Norm al (applies to non-numeric results) [facility] ([facility]) Platelet Count, Automated 264 10 150-450 Normal (applies to non-numeric results) [facility] ([facility]) Mean Corpuscular HGB Conc 33.7 g/dL 32.0-36.5 Normal (applies to non-numeric results) [facility] ([facility]) [place] % 7.9 % 0.0-5.0 Above high normal [facility] ([facility]) Neutrophils % 52.1 % 36.0-66.0 Normal (applies to non-numeric re sults) [facility] ([facility]) Lymph % 36.9 % 24.0-44.0 Normal (applies to non-numeric resul ts) [facility] ([facility]) Eos % 1.7 % 0.0-3.0 Normal (applies to non-numeric resul ts) [facility] ([facility]) Immature Granulocyte % 1.0 % 0-3.0 Normal (applies to non-n umeric results) [facility] ([facility]) Baso % 0.4 % 0.0-1.0 Normal (applies to non-numeric resul ts) [facility] ([facility] Lymph # 1.9 10 1.5-5.0 Normal (applies to non-numeric resul ts) [facility] ([facility]) Neutrophils # 2.7 10 1.5-8.5 Normal (applies to non-numeric re sults) [facility] ([facility]) Nucleated Red Blood Cell % 0.0 % 0-0 Normal (applies to n on-numeric results) [facility] ([facility]) Baso # 0.0 10 0.0-0.2 Normal (applies to non-numeric resul ts) [facility] ([facility]) [place] # 0.4 10 0.0-0.8 Normal (applies to non-numeric resul ts) [facility] ([facility]) Eos # 0.1 10 0.0-0.5 Normal (applies to non-numeric resul ts) [facility] ([facility]) ID Date Data Source [id number] 07/29/2020 12:00:00 AM EDT [facility] Ziyad Robbins Pa-[facility] Patient Name: ANAMIKA LOYA [id number] Date of : 1995[place] [id number] Date of Exam: 07/29/2020PH#: Fax: [phone] EXAM: US HEAD AND NECK SOFT TISSUECLINICAL INFORMATION: Neal's, thyroiditis and hypothyroidism.Priors: We have made attempts to obtain the prior [facility]. The attempts have been fruitless. So as not to delaypatient care, this examination will be interpreted at the time without theavailability of the prior for comparison. If and when the priorexamination becomes available for review, then an addendum report will bemade if necessary. Original exam date is 07/29/2020.ISTHMUS: 0.3 cm thickRIGHT LOBE: 4.4 x 1.4 x 1.3 cm LEFT LOBE: 5.1 x 1.2 x 1.6 cmMasses seen: NoneThere is marked heterogeneity of the thyroid gland without evidence of adiscrete nodule at this time.Accredited by the [place] [employer] in General Ultrasound.HEATHER Zambrano/Enma you for referring ANAMIKA Rupesh RODRIGUEZ to our office. Electronically Signed - SILVESTRE MARCOS DO 08/04/20 16:51 Name Value Range Interpretation Code Description Data Katina rce(s) Supporting Document(s) Procedure Social History Code Duration Value Status Description Data Source(s ) Smoking 08/02/2020 12:00:00 AM EDT Patient has never smoked co mpleted Patient has never smoked [facility] ([facility]) Vital Signs ID Date Data Source UNK Name Value Range Interpretation Code Description Data Source(s) Byram body weight 140 [lb_av] 140 [lb_av] [facility] ([facility] Oxygen saturation in Arterial blood by Pulse oximetry 97 % 97 % [facility] ([facility] Body temperature 99.0 [degF] 99.0 [degF] [facility] ([facility] Respiratory rate 18 /min 18 /min [facility] ( [facility] Heart rate 89 /min 89 /min [facility] ([facility] Body mass index (BMI) [Ratio] 34.6 kg/m2 34.6 k g/m2 [facility] ([facility] Body weight 230.12 [lb_av] 230.12 [lb_av] [facility] ([facility] Body height 68.4 [in_i] 68.4 [in_i] [facility] ([facility]) 5'8.40" Diastolic blood pressure 86 mm[Hg] 86 mm[Hg] [facility] ([facility] Systolic blood pressure 130 mm[Hg] 130 mm[Hg] [facility] ([facility]) Byram body weight 140 [lb_av] 140 [lb_av] [facility] ([facility] Oxygen saturation in Arterial blood by Pulse oximetry 98 % 98 % [facility] ([facility] Body temperature 98.1 [degF] 98.1 [degF] [facility] ([facility] Respiratory rate 16 /min 16 /min [facility] ( [facility] Heart rate 75 /min 75 /min [facility] ([facility] Body mass index (BMI) [Ratio] 33.7 kg/m2 33.7 k g/m2 [facility] ([facility] Body weight 224.12 [lb_av] 224.12 [lb_av] [facility] ([facility] Body height 68.4 [in_i] 68.4 [in_i] [facility] ([facility]) 5'8.40" Diastolic blood pressure 80 mm[Hg] 80 mm[Hg] [facility] ([facility] Systolic blood pressure 128 mm[Hg] 128 mm[Hg] Favi[facility] ([facility]) Byram body weight 140 [lb_av] 140 [lb_av] [facility] ([facility] Oxygen saturation in Arterial blood by [facility]ulse oximetry 98 % 98 % [facility] Body temperature 99.8 [degF] 99.8 [degF] [facility] ([facility]) Respiratory rate 16 /min 16 /min [facility] ( [facility] Heart rate 79 /min 79 /min [facility] ([facility] Body mass index (BMI) [Ratio] 33.7 kg/m2 33.7 k g/m2 [facility] ([facility] Body weight 224.12 [lb_av] 224.12 [lb_av] [facility] ([facility] Body height 68.4 [in_i] 68.4 [in_i] [facility] ([facility]) 5'8.40" Diastolic blood pressure 80 mm[Hg] 80 mm[Hg] [facility] ([facility] Systolic blood pressure 118 mm[Hg] 118 mm[Hg] [facility] ([facility]
--- OUTSIDE RECORDS SUMMARY | 2020-12-03 19:29 | CCD | Continuity of Care Document ---
Author Mulu Oh Organization [place] [address] Phone [phone] Care Team Providers Care Choral Director Name Role Phone Isi Mitchell D.O. AUTM [phone] Problems Active Problems Provider Date Vitamin D [...] SIG Qnty Indications Ordering Provide r Date Levothyroxine Sodium 137mcg Tablet s take one tablet by mouth daily on an empty stomach 90tabs Isi Mitchell D.O. 11/17/2020 Vitamin D (Ergocalciferol) 1.25mg (59939 Ut) Capsules 1 capsule weekly for 12 weeks 12caps E55.9 Zach Mitchell D.O. 10/21/2020 Vitamin D3 Super Strength 50mcg (2000 Ut) Tablets 1 by mouth every day 90tabs Isi Mitchell D.O. 08/02/2020 Ocella 3-0.03mg Tablets 1 by mouth every day 84tabs Isi Mitchell D.O. Valacyclovir HCL 500mg Tablets 1 by mouth every day 90tabs Isi Mitchell D.O. Immunizations Description No Information Available Vital Signs Date Vital Result Comment 10/21/2020 3:33pm BP Systolic 130 mmHg BP Diastolic 86 mmHg Height 68.4 inches 5'8.40" Weight 230.12 lb BMI (Body Mass Index) 34.6 kg/m2 Heart Rate 89 /min Respiratory Rate 18 /min Body Temperature 99.0 F O2 % BldC Oximetry 97 % [place] Body Weight 140 lb 08/02/2020 2:49pm BP Systolic 128 mmHg BP Diastolic 80 mmHg Height 68.4 inches 5'8.40" Weight 224.12 lb BMI (Body Mass Index) 33.7 kg/m2 Heart Rate 75 /min Respiratory Rate 16 /min Body Temperature 98.1 F O2 % BldC Oximetry 98 % [place] Body Weight 140 lb Results Test Acquired Date Facility Test Result H/L Range Note CBC With Differential 11/13/2020 [place] [id number] [phone] White Blood Count 4.5 10 Normal 4.0-10.0 Red Blood Count 4.82 10 Normal 4.00-5.40 Hemoglobin 13.9 g/dL Normal 12.0-15.5 Hematocrit 41.8 % Normal 36.0-47.0 Mean Corpuscular Volume 86.7 fl Normal 80.0-96.0 Mean Corpuscular Hemoglobin 28.8 pg Normal 27.0-33.0 Mean Corpuscular HGB Conc 33.3 g/dL Normal 32.0-36.5 Red Cell Distribution Width 12.5 % Normal 11.5-14.5 Platelet Count, Automated 263 10 Normal 150-450 Neutrophils % 49.1 % Normal 36.0-66.0 Lymph % 40.8 % Normal 24.0-44.0 Crowley % 8.2 % High 0.0-5.0 Eos % 1.3 % Normal 0.0-3.0 Baso % 0.4 % Normal 0.0-1.0 Immature Granulocyte % 0.2 % Normal 0-3.0 Nucleated Red Blood Cell % 0.0 % Normal 0-0 Neutrophils # 2.2 10 Normal 1.5-8.5 Lymph # 1.8 10 Normal 1.5-5.0 Crowley # 0.4 10 Normal 0.0-0.8 Eos # 0.1 10 Normal 0.0-0.5 Baso # 0.0 10 Normal 0.0-0.2 Comprehensive Metabolic Profil 11/13/[address] [address] [phone] Glucose, Fasting 95 mg/dL Normal 70-100 Blood Urea Nitrogen 10 mg/dL Normal 7-18 Creatinine For GFR 0.82 mg/dL Normal 0.55-1.30 Glomerular Filtration Rate > 60.0 Normal >60 1 Sodium Level 138 mEq/L Normal 136-145 Potassium Serum 4.3 mEq/L Normal 3.5-5.1 Chloride Level 107 mEq/L Normal 98-107 Carbon Dioxide Level 24 mEq/L Normal 21-32 Anion Gap 7 mEq/L Low 8-16 Calcium Level 9.3 mg/dL Normal 8.5-10.1 Ast/Sgot 17 U/L Normal 7-37 Alt/SGPT 26 U/L Normal 12-78 Alkaline Phosphatase 68 U/L Normal 45-117 Bilirubin,Total 0.4 mg/dL Normal 0.2-1.0 Total Protein 6.8 GM/DL Normal 6.4-8.2 Albumin 3.6 GM/DL Normal 3.2-5.2 Albumin/Globulin Ratio 1.1 Low 1.2-2.2 FT4&TSH Panel 11/13/2020 [facility] nter [address] [place] [address] [phone] Thyroid Stimulating Hormone 0.047 uIU/ML Low 0. 358-3.740 Free T4 1.37 ng/dL Normal 0.76-1.46 Laboratory test finding 11/13/[address] [address] [phone] Thyroid Peroxidase Antibody > 1300.0 U/ML High < 60.0 Thyroglob QNT Incl Thyrogl Tiffanie 11/13/[address] [address] [phone] Thryoglobulin Antibodies (Brad) 2.0 IU/mL High 0 .0-0.9 2 Thyroglobulin May 7.0 ng/mL Normal . 3 Image-Guided Pap W Age-Based SCR W CT/NG 08/02/2020 [facility] Comment (SEE NOTE) 4 Thinprep Tis Pap Reflex HPV Mrna E6/E7 08/02/2020 [facility] Report Status: DNR Normal Clinical Information: (SEE NOTE) Normal 5 LMP: (SEE NOTE) Normal 6 Prev. Pap: (SEE NOTE) Normal 7 Prev. BX: None given Normal Source: (SEE NOTE) Normal 8 Statement Of Adequacy: (SEE NOTE) Normal 9 General Categorization: DNR Normal Interpretation/Result: (SEE NOTE) Normal 10 Infection: DNR Normal Comment: (SEE NOTE) Normal 11 Contact Lens Manufacturer: (SEE NOTE) Normal 12 Review Contact Lens Manufacturer: DNR Normal Pathologist: DNR Normal Comment (SEE NOTE) 13 Chlamydia/N. Gonorrhoeae Rna, Tma, Uroge 08/02/2020 [facility] Chlamydia Trachomatis Rna, Tma, Urogenital NOT DETECTED Normal Not Detected Neisseria Gonorrhoeae Rna, Tma, Urogenital NOT DETECTED Normal Not Detected Comment (SEE NOTE) 14 Laboratory test finding 08/02/2020 [facility] Enhanced PDF Report [id number] SEE IMAGE CBC With Differential 07/31/2020 [place] [id number] [phone] White Blood Count 5.2 10 Normal 4.0-10.0 [...] 36.0-66.0 Lymph % 36.9 % Normal 24.0-44.0 Crowley % 7.9 % High 0.0-5.0 Eos % 1.7 % Normal 0.0-3.0 Baso % 0.4 % Normal 0.0-1.0 Immature Granulocyte % 1.0 % Normal 0-3.0 Nucleated Red Blood Cell % 0.0 % Normal 0-0 Neutrophils # 2.7 10 Normal 1.5-8.5 Lymph # 1.9 10 Normal 1.5-5.0 Crowley # 0.4 10 Normal 0.0-0.8 Eos # 0.1 10 Normal 0.0-0.5 Baso # 0.0 10 Normal 0.0-0.2 Comprehensive Metabolic Profil 07/31/[address] [address] [phone] Glucose, Fasting 94 mg/dL Normal 70-100 Blood Urea Nitrogen 13 mg/dL Normal 7-18 Creatinine For GFR 0.76 mg/dL Normal 0.55-1.30 Glomerular Filtration Rate > 60.0 Normal >60 1 5 Sodium Level 141 mEq/L Normal 136-145 Potassium [...] 1.0 Low 1.2-2.2 Laboratory test finding 07/31/[address] [address] [phone] Total 25(Oh) Vitamin D 28.0 NG/ML Low 30.0-100. 0 FT4&TSH Panel 07/31/2020 [facility] nter [address] [place] [address] [phone] Thyroid Stimulating Hormone 0.916 uIU/ML Normal 0. 358-3.740 Free T4 1.27 ng/dL Normal 0.76-1.46 1 Units are mL/min/1.73 m2 Chronic Kidney Disease Staging per NKF: Stage I & II GFR >=60 Normal to Mildly Decreased Stage III GFR 30-59 Moderately Decreased Stage IV GFR 15-29 Severely Decreased Stage V GFR <15 Very Little GFR Left ESRD GFR <15 on SURVEILLANCE CAMERA TECHNICIAN 2 Thyroglobulin Antibody measu red by [facility] [place] Methodology 3 This test was developed and its performance characteristics determined by [employer]. It has not been cleared or approved by the Food and Drug Administration. Reference Range: Pubertal Children and Adults: <40 According to the National Academy of Clinical Biochemistry, the reference interval for Thyroglobulin (TG) should be related to euthyroid patients and not for patients who underwent thyroidectomy. TG reference intervals for these patients depend on the residual mass of the thyroid tissue left after surgery. Establishing a post-operative baseline is recommended. The assay quantitation limit is 2.0 ng/mL. Performed at: - [facility] [id number] Head Men'S Golf Coach: Janice Gan MD, Phone: [phone] Performed at: [facility] [address] [place] [id number] Head Men'S Golf Coach: Douglas Hooker MD, Phone: [phone] 4 This order for age-based cer vical cancer and STI screening follows ACOG guidelines(PB 168, 140, THX960). See individual assays for performing site location. 5 None given 6 None given 7 None given 8 Cervix, Endocervix 9 Satisfactory for evaluation. Endocervical/transformation zone component present. 10 Negative for intraepithelial lesion or malignancy. 11 This Pap test has been evalu ated with computer assisted technology. 12 BH, CT(ASCP) CT screening lo cation: [facility] [place], [address] [place] [address]. 13 EXPLANATORY NOTE: The Pap is a screening test for cervical cancer. It is not a diagnostic test and is subject to false negative and false positive results. It is most reliable when a satisfactory sample, regularly obtained, is submitted with relevant clinical findings and history, and when the Pap result is evaluated along with historic and current clinical information. 14 The analytical performance c haracteristics of this assay, when used to test SurePath(TM) specimens have been determined by [facility]. The modifications have not been cleared or approved by the FDA. This assay has been validated pursuant to the CLIA regulations and is used for clinical purposes. For additional information, please refer to https://education.[employer].Kapture/faq/UZX507 (This link is being provided for informa tion/ educational purposes only.) 15 Units are mL/min/1.73 m2 Chronic Kidney Disease Staging per NKF: Stage I & II GFR >=60 Normal to Mildly Decreased Stage III GFR 30-59 Moderately Decreased Stage IV GFR 15-29 Severely Decreased Stage V GFR <15 Very Little GFR Left ESRD GFR <15 on SURVEILLANCE CAMERA TECHNICIAN Procedures Description No Information Available Medical Devices Description No Information Available Encounters Type Date Location Provider Dx Diagnosis Office Visit 10/21/2020 3:40p [facility] SHIRA Mendez E03.9 Hypothyroidism, unspecified E55.9 Vitamin D deficiency, unspec ified 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
--- OUTSIDE RECORDS SUMMARY | 2020-12-03 19:29 | CCD ---
Author Organization Unknown Address [address] [place] [address] Phone [phone] Care Team Providers Care Hot Kettle Tender Name Role Phone Fabiano Shah Unavailable Unavailable Allergies None recorded. Medications None recorded. Problems None recorded. Procedures None recorded. Results Lab Results Date Name Specimen Result Interpretation Description Value Range Status Address 09/08/2020 COVID-19 RNA (SARS-CoV-2), QL, sales account representative-PCR, Respiratory Specimen Nasopharyngeal Sars Cov 2 RNA not detected not detected Fi [facility] ([facility] [employer]): [address] Past Encounters 10/27/2020 SARS-CoV-2 Vaccination Fabiano Shah MD: [address] [place] [phone], Ph. 09/08/2020 Exposure to SARS-CoV-2 Fabiano Shah MD: [address] [place] [phone], Ph. Social History None recorded. Vaccine List Vaccine Type COVID-19, mRNA, LNP-S, PF, 100 mcg/0.5 m L dose 10/27/20200.5 mL Plan of Care Reminders Provider Appointments None recorded. Lab None recorded. Referral None recorded. Procedures None recorded. Surgeries None recorded. Imaging None recorded. Vitals None recorded.
--- OUTSIDE RECORDS SUMMARY | 2020-12-03 19:29 | CCD | Continuity of Care Document ---
Author Mulu Oh Organization [place] [address] Phone [phone] Care Team Providers Care Tile Molder Name Role Phone Isi Mitchell D.O. AUTM Problems Active Problems Provider Date Vitamin D [...] Provide r Date Vitamin D (Ergocalciferol) 1.25mg (62420 Ut) Capsules 1 capsule weekly for 12 weeks 12caps E55.9 Zach Mitchell D.O. 10/21/2020 Vitamin D3 Super Strength 50mcg (2000 Ut) Tablets 1 by mouth every day 90tabs Isi Mitchell D.O. 08/02/2020 Ocella 3-0.03mg Tablets 1 by mouth every day 84tabs Isi Mitchell D.O. / Levothyroxine Sodium 150mcg Tablet s take [...] F O2 % BldC Oximetry 97 % [place] Body Weight 140 lb 08/02/2020 2:49pm BP Systolic 128 mmHg BP Diastolic 80 mmHg Height 68.4 inches 5'8.40" Weight 224.12 lb BMI (Body Mass Index) 33.7 kg/m2 Heart Rate 75 /min Respiratory Rate 16 /min Body Temperature 98.1 F O2 % BldC Oximetry 98 % [place] Body Weight 140 lb Results Test Acquired [...] DNR Normal Comment: (SEE NOTE) Normal 8 Agent Broker: (SEE NOTE) Normal 9 Review Agent Broker: DNR Normal Pathologist: DNR Normal Comment (SEE NOTE) 10 Chlamydia/N. Gonorrhoeae Rna, Tma, Uroge 08/02/2020 [facility] Chlamydia Trachomatis Rna, Tma, Urogenital NOT DETECTED Normal Not Detected Neisseria Gonorrhoeae Rna, Tma, Urogenital NOT DETECTED Normal Not Detected Comment (SEE NOTE) 11 Laboratory test finding 08/02/2020 [facility] Enhanced PDF Report [id number] SEE IMAGE CBC With Differential 07/31/[address] [id number] [phone] White Blood Count 5.2 10 Normal 4.0-10.0 [...] 36.0-66.0 Lymph % 36.9 % Normal 24.0-44.0 Armstrong % 7.9 % High 0.0-5.0 Eos % 1.7 % Normal 0.0-3.0 Baso % 0.4 % Normal 0.0-1.0 Immature Granulocyte % 1.0 % Normal 0-3.0 Nucleated Red Blood Cell % 0.0 % Normal 0-0 Neutrophils # 2.7 10 Normal 1.5-8.5 Lymph # 1.9 10 Normal 1.5-5.0 Armstrong # 0.4 10 Normal 0.0-0.8 Eos # 0.1 10 Normal 0.0-0.5 Baso # 0.0 10 Normal 0.0-0.2 Comprehensive Metabolic Profil 07/31/[address] [address] [phone] Glucose, Fasting 94 mg/dL Normal 70-100 Blood [...] 1.0 Low 1.2-2.2 Laboratory test finding 07/31/2020 [facility] [address] [place] [address] [phone] Total 25(Oh) Vitamin D 28.0 NG/ML Low 30.0-100. 0 FT4&TSH Panel 07/31/2020 [facility] nter [address] [place] [address] [phone] Thyroid Stimulating Hormone 0.916 uIU/ML Normal 0. 358-3.740 Free T4 1.27 ng/dL Normal 0.76-1.46 1 This order for age-based cer vical cancer and STI screening follows ACOG guidelines(PB 168, 140, BKY343). See individual assays for performing site location. 2 None given 3 None given 4 None given 5 Cervix, Endocervix 6 Satisfactory for evaluation. Endocervical/transformation zone component present. 7 Negative for intraepithelial lesion or malignancy. 8 This Pap test has been evalu ated with computer assisted technology. 9 BH, CT(ASCP) CT screening lo cation: [facility] [place], [address] [place] [address]. 10 EXPLANATORY NOTE: The Pap is a [...] test SurePath(TM) specimens have been determined by [facility]. The modifications have not been cleared or approved by the FDA. This assay has been validated pursuant to the CLIA regulations and is used for clinical purposes. For additional information, please refer to https://education.[employer].CardMunch/faq/ECV338 (This link is being provided for informa tion/ educational purposes only.) 12 Units are mL/min/1.73 m2 Chronic Kidney Disease Staging per NKF: Stage I & II GFR >=60 Normal to Mildly Decreased Stage III GFR 30-59 Moderately Decreased Stage IV GFR 15-29 Severely Decreased Stage V GFR <15 Very Little GFR Left ESRD GFR <15 on LOGISTICS/SHIPPER Procedures Description No Information Available Medical Devices Description No Information Available Encounters Type Date Location Provider Dx Diagnosis Office Visit 10/21/2020 3:40p [facility] SHIRA Mckinley E03.9 Hypothyroidism, unspecified E55.9 Vitamin D deficiency, unspec ified 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
--- OUTSIDE RECORDS SUMMARY | 2020-12-03 19:29 | CCD | Continuity of Care Document ---
Author Mulu Oh [place] [address] Phone [phone] Care Team Providers Care Baseball Glove Shaper Name Role Phone Isi Mitchell D.O. AUTM [phone] Problems Active Problems Provider Date Vitamin D [...] Mitchell D.O. 11/17/2020 Vitamin D (Ergocalciferol) 1.25mg (76204 Ut) Capsules 1 capsule weekly for 12 [...] F O2 % BldC Oximetry 97 % [place] Body Weight 140 lb 08/02/2020 2:49pm BP Systolic 128 mmHg BP Diastolic 80 mmHg Height 68.4 inches 5'8.40" Weight 224.12 lb BMI (Body Mass Index) 33.7 kg/m2 Heart Rate 75 /min Respiratory Rate 16 /min Body Temperature 98.1 F O2 % BldC Oximetry 98 % [place] Body Weight 140 lb Results Test Acquired Date Facility Test Result H/L Range Note CBC With Differential 11/13/2020 [place] [id number] [phone] White Blood Count 4.5 10 Normal 4.0-10.0 [...] 36.0-66.0 Lymph % 40.8 % Normal 24.0-44.0 Tyler % 8.2 % High 0.0-5.0 Eos % 1.3 % Normal 0.0-3.0 Baso % 0.4 % Normal 0.0-1.0 Immature Granulocyte % 0.2 % Normal 0-3.0 Nucleated Red Blood Cell % 0.0 % Normal 0-0 Neutrophils # 2.2 10 Normal 1.5-8.5 Lymph # 1.8 10 Normal 1.5-5.0 Tyler # 0.4 10 Normal 0.0-0.8 Eos # 0.1 10 Normal 0.0-0.5 Baso # 0.0 10 Normal 0.0-0.2 Comprehensive Metabolic Profil 11/13/[address] [address] [phone] Glucose, Fasting 95 mg/dL Normal 70-100 Blood [...] Ratio 1.1 Low 1.2-2.2 FT4&TSH Panel 11/13/2020 [facility] nter [address] [place] [address] [phone] Thyroid Stimulating Hormone 0.047 uIU/ML Low 0. 358-3.740 Free T4 1.37 ng/dL Normal 0.76-1.46 Laboratory test finding 11/13/[address] [address] [phone] Thyroid Peroxidase Antibody > 1300.0 U/ML High < 60.0 Image-Guided Pap W Age-Based SCR W CT/NG 08/02/2020 [facility] Comment (SEE NOTE) 2 Thinprep Tis Pap Reflex HPV Mrna E6/E7 08/02/2020 [facility] Report Status: DNR Normal Clinical Information: (SEE NOTE) Normal 3 LMP: (SEE NOTE) Normal 4 Prev. Pap: (SEE NOTE) Normal 5 Prev. BX: None given Normal Source: (SEE NOTE) Normal 6 Statement Of Adequacy: (SEE NOTE) Normal 7 General Categorization: DNR Normal Interpretation/Result: (SEE NOTE) Normal 8 Infection: DNR Normal Comment: (SEE NOTE) Normal 9 Marketing Account Executive: (SEE NOTE) Normal 10 Review Marketing Account Executive: DNR Normal Pathologist: DNR Normal Comment (SEE NOTE) 11 Chlamydia/N. Gonorrhoeae Rna, Tma, Uroge 08/02/2020 [facility] Chlamydia Trachomatis Rna, Tma, Urogenital NOT DETECTED Normal Not Detected Neisseria Gonorrhoeae Rna, Tma, Urogenital NOT DETECTED Normal Not Detected Comment (SEE NOTE) 12 Laboratory test finding 08/02/2020 [facility] Enhanced PDF Report [id number] SEE IMAGE CBC With Differential 07/31/2020 [place] [id number] [phone] White Blood Count 5.2 10 Normal 4.0-10.0 [...] 36.0-66.0 Lymph % 36.9 % Normal 24.0-44.0 Tyler % 7.9 % High 0.0-5.0 Eos % 1.7 % Normal 0.0-3.0 Baso % 0.4 % Normal 0.0-1.0 Immature Granulocyte % 1.0 % Normal 0-3.0 Nucleated Red Blood Cell % 0.0 % Normal 0-0 Neutrophils # 2.7 10 Normal 1.5-8.5 Lymph # 1.9 10 Normal 1.5-5.0 Tyler # 0.4 10 Normal 0.0-0.8 Eos # 0.1 10 Normal 0.0-0.5 Baso # 0.0 10 Normal 0.0-0.2 Comprehensive Metabolic Profil 07/31/[address] [address] [phone] Glucose, Fasting 94 mg/dL Normal 70-100 Blood Urea Nitrogen 13 mg/dL Normal 7-18 Creatinine For GFR 0.76 mg/dL Normal 0.55-1.30 Glomerular Filtration Rate > 60.0 Normal >60 1 3 Sodium Level 141 mEq/L Normal 136-145 Potassium [...] 1.0 Low 1.2-2.2 Laboratory test finding 07/31/[address] [address] [phone] Total 25(Oh) Vitamin D 28.0 NG/ML Low 30.0-100. 0 FT4&TSH Panel 07/31/2020 [facility] nter [address] [place] [address] [phone] Thyroid Stimulating Hormone 0.916 uIU/ML Normal 0. 358-3.740 Free T4 1.27 ng/dL Normal 0.76-1.46 1 Units are mL/min/1.73 m2 Chronic Kidney Disease Staging per NKF: Stage I & II GFR >=60 Normal to Mildly Decreased Stage III GFR 30-59 Moderately Decreased Stage IV GFR 15-29 Severely Decreased Stage V GFR <15 Very Little GFR Left ESRD GFR <15 on PUBLISHING SPECIALIST 2 This order for age-based cer vical cancer and STI screening follows ACOG guidelines(PB 168, 140, TGB817). See individual assays for performing site location. 3 None given 4 None given 5 None given 6 Cervix, Endocervix 7 Satisfactory for evaluation. Endocervical/transformation zone component present. 8 Negative for intraepithelial lesion or malignancy. 9 This Pap test has been evalu ated with computer assisted technology. 10 BH, CT(ASCP) CT screening lo cation: [facility] [place], [address] [place] [address]. 11 EXPLANATORY NOTE: The Pap is a screening test for cervical cancer. It is not a diagnostic test and is subject to false negative and false positive results. It is most reliable when a satisfactory sample, regularly obtained, is submitted with relevant clinical findings and history, and when the Pap result is evaluated along with historic and current clinical information. 12 The analytical performance c haracteristics of this assay, when used to test SurePath(TM) specimens have been determined by [facility]. The modifications have not been cleared or approved by the FDA. This assay has been validated pursuant to the CLIA regulations and is used for clinical purposes. For additional information, please refer to https://education.[employer]/faq/JDJ538 (This link is being provided for informa tion/ educational purposes only.) 13 Units are mL/min/1.73 m2 Chronic Kidney Disease Staging per NKF: Stage I & II GFR >=60 Normal to Mildly Decreased Stage III GFR 30-59 Moderately Decreased Stage IV GFR 15-29 Severely Decreased Stage V GFR <15 Very Little GFR Left ESRD GFR <15 on PUBLISHING SPECIALIST Procedures Description No Information Available Medical Devices Description No Information Available Encounters Type Date Location Provider Dx Diagnosis Office Visit 10/21/2020 3:40p [facility] SHIRA Mendez E03.9 Hypothyroidism, unspecified E55.9 Vitamin D deficiency, unspec ified Z79.3 snf (current) use of h ormonal contraceptives Office Visit 08/02/2020 3:00p [facility] Isi Mitchell D.O. 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 08/02/2020 E55.9 Vitamin D deficiency, unspecifie d Isi Mitchell D.O. 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
--- OUTSIDE RECORDS SUMMARY | 2020-12-03 19:29 | CCD ---
Author Organization Unknown Address [address] [place] [address] Phone [phone] Care Team Providers Care Quality Assurance Assessor Name Role Phone Fabiano Shah Unavailable Unavailable Allergies None recorded. Medications None recorded. Problems None recorded. Procedures None recorded. Results Lab Results None recorded. Past Encounters 09/08/2020 Exposure to SARS-CoV-2 Fabiano Shah MD: [address] [place] [address], Ph. Social History None recorded. Vaccine List None recorded. Plan of Care Reminders Provider Appointments None recorded. Lab None recorded. Referral None recorded. Procedures None recorded. Surgeries None recorded. Imaging None recorded. Vitals None recorded.
--- OUTSIDE RECORDS SUMMARY | 2020-12-03 19:29 | CCD ---
Author Organization Unknown Address [address] [place] [address] Phone [phone] Care Team Providers Care B2B Appointment Setter Name Role Phone Fabiano Shah Unavailable Unavailable Allergies None recorded. Medications Name Status Start Date Stop Date azithromycin 250 mg tablet Active Not a vailable drospirenone 3 mg-ethinyl estradiol 0.03 mg tablet TAKE 1 TABLET BY MOUTH ONCE DAILY Active Not a vailable Euthyrox 125 mcg tablet TAKE 1 TABLET BY MOUTH ONCE DAILY FOR 30 DAYS Active Not available Euthyrox 137 mcg tablet Active Not avai lable fluticasone propionate 50 mcg/actuation nasal spray,suspension A ctive Not available Fluzone Quad (PF) 60 mcg (15 mcg x 4)/0.5 mL IM syring e Active Not available levothyroxine 150 mcg tablet TAKE 1 TABLET BY MOUTH ONCE DAILY ON AN EMPTY STOMACH Active Not available valacyclovir 500 mg tablet TAKE 1 TABLET BY MOUTH ONCE DAILY Active Not a vailable Problems None recorded. Procedures None recorded. Results Lab Results Date Name Specimen Result Interpretation Description Value Range Status Address 09/08/2020 COVID-19 RNA (SARS-CoV-2), QL, diesel engine specialist-PCR, Respiratory Specimen Nasopharyngeal Sars Cov 2 RNA not detected not detected Fi nal [facility] ([facility]): [address] Past Encounters 11/25/2020 Active or Passive Immunization Blanche Chatterjee RPA-C: [address] [place] [address], Ph. 10/27/2020 SARS-CoV-2 Vaccination Fabiano Shah MD: [address] [place] [address], Ph. 09/08/2020 Exposure to SARS-CoV-2 Fabiano Shah MD: [address] [place] [address], Ph. Social History None recorded. Vaccine List Vaccine Type COVID-19, mRNA, LNP-S, PF, 100 mcg/0.5 m L dose .5 mL .5 mL Plan of Care Reminders Provider Appointments None recorded. Lab None recorded. Referral None recorded. Procedures None recorded. Surgeries None recorded. Imaging None recorded. Vitals None recorded.
[2020-12-03] MEDS ORDERED: DROS3TAB (19:35)
[2020-12-03] MEDS ORDERED: VALA500T5 (19:35)
[2020-12-03] MEDS ORDERED: ONDA-83 (19:35)
[2020-12-03] MEDS ORDERED: LEVO150T7 (19:35)
[2020-12-03] MEDS ORDERED: NS 1,000 ML IV ONE (20:45)
[2020-12-03] MEDS ORDERED: ONDANSETRON 4MG/2ML VIAL IV ONE (20:45)
[2020-12-03] MEDS ORDERED: DICYCLOMINE 10 MG CAP PO ONE (20:45)
[2020-12-03 21:20] LABS: BASO % 0.4 % (0.0-1.0); EOS # 0.1 10^3/uL (0.0-0.5); EOS % 1.3 % (0.0-3.0); HEMATOCRIT 39.1 % (36.0-47.0); HEMOGLOBIN 13.3 g/dl (12.0-15.5); LYMPH # 2.3 10^3/uL (1.5-5.0); LYMPH % 32.1 % (24.0-44.0); MEAN CORPUSCULAR HEMOGLOBIN 28.3 pg (27.0-33.0); MEAN CORPUSCULAR VOLUME 83.2 fl (80.0-96.0); MONO # 0.5 10^3/uL (0.0-0.8); MONO % 7.6 % (0.0-5.0); NEUTROPHILS # 4.1 10^3/uL (1.5-8.5); NEUTROPHILS % 57.6 % (36.0-66.0); PLATELET COUNT, AUTOMATED 297 10^3/uL (150-450); WHITE BLOOD COUNT 7.1 10^3/uL (4.0-10.0)
[2020-12-03 21:45] LABS: ALBUMIN 3.5 GM/DL (3.2-5.2); ALT/SGPT 54 U/L (12-78); BILIRUBIN,DIRECT < 0.1 MG/DL (0.0-0.2); BILIRUBIN,TOTAL 0.1 MG/DL (0.2-1.0); LIPASE 117 U/L (73-393); TOTAL PROTEIN 6.7 GM/DL (6.4-8.2)
--- OUTSIDE RECORDS SUMMARY | 2020-12-03 22:22 | CCD ---
Author Author [facility] Organization [facility] Address Unknown Phone Unavailable Care Team Providers Care Content Checker Name Role Phone Mt Shah MD Unavailable [...] Unavailable Mt Shah MD Unavailable Unavailable Mt Sahh MD Unavailable Unavailable Mt Shah MD Unavailable [...] Unavailable Unavailable Mt Shah MD Unavailable Unavailable tM Shah MD Unavailable Unavailable Mt Shah MD Unavailable Unavailable Mt Shah MD Unavailable Unavailable Mt Shah MD Unavailable Unavailable Mt Shah MD Unavailable Unavailable Mt Shah MD Unavailable Unavailable Mt Sahh MD Unavailable Unavailable Mt Shah MD Unavailable Unavailable Mt Shah MD Unavailable Unavailable Mt Shah MD Unavailable Unavailable Mt Shah MD Unavailable Unavailable Mt Shah MD Unavailable Unavailable Mt Shah MD Unavailable Unavailable tM Shah MD Unavailable Unavailable Mt Shah MD [...] LUIS-NEVAEH, YEN DO Unavailable Unavailable PEDRO LUIS-NEVAEH, YNE DO Unavailable Unavailable PEDRO LUIS-NEVAEH, YEN DO [...] is protected by Article 27-F of the [facility] Public Health law. If you continue you may have access to information: Regarding HIV / AIDS; Provided by facilities licensed or operated by the [facility] Office of Mental Health; or Provided by the [facility] Office for People With Developmental Disabilities. If such information is present, then the following [facility] mandated warning applies: This information has been [...] law may result in a fine or longterm sentence or both. A general authorization for the release of medical or other information is NOT sufficient authorization for further disc losure. Allergies and Adverse Reactions Type Description Substance Reaction Status Data Source(s ) Allergy to substance Allergy to substance Allergy to substance [facility] ([facility]) Allergy to substance Allergy to substance Allergy to substance [facility] ([facility]) Allergy to substance Allergy to substance Allergy to substance [facility] ([facility]) Encounters Encounter Providers Location Date Indications Data Source(s ) LEATHA De LeónC: [address] [place] [address], Ph. Attender: Blanche Hoffman [facility] Medical 11/25/2020 12:00:00 AM EST [facility] ([facility]) Fabiano Shah MD: [address] [place] [address], Ph. Attender: Fabiano Shah MD [facility] Medical 10/27/2020 12:00:00 AM EST [facility] ([facility]) Fabiano Shah MD: [address] [place] [address], Ph. Attender: Fabiano Shah MD [facility] Medical 10/27/2020 12:00:00 AM EST [facility] ([facility]) Outpatient Attender: Ziyad SILVA [facility] 10/21/2020 02:40:00 PM EST [facility] ([facility]) Fabiano Shah MD: [address] [place] [address], Ph. Attender: Fabiano Shah MD [facility] Medical 09/08/2020 12:00:00 AM EST [facility] ([facility]) Fabiano Shah MD: [address] [place] [address], Ph. Attender: Fabiano Shah MD [facility] Medical 09/08/2020 12:00:00 AM EST [facility] ([facility]) Fabiano Shah MD: [address] [place] [address], Ph. Attender: Fabiano Shah MD [facility] Medical 09/08/2020 12:00:00 AM EST [facility] ([facility]) Outpatient Attender: YEN MTZ DO [facility] 08/02/2020 03:00:00 PM EDT [facility] ([facility]) Outpatient Attender: Ziyad SILVA [facility] 07/21/2020 03:00:00 PM EDT [facility] ([facility]) Immunizations Vaccine Date Status Description Data Source(s) COVID-19, mRNA, LNP-S, PF, 100 mcg/0.5 mL dose 11/25/2020 09 :21:19 AM EST completed 10.5 mL [facility] ([facility]) COVID-19, mRNA, LNP-S, PF, 100 mcg/0.5 mL dose 10/27/2020 03 :37:29 PM EST completed .5 mL [facility] ([facility]) COVID-19, mRNA, LNP-S, PF, 100 mcg/0.5 mL dose 10/27/2020 03 :37:29 PM EST completed .5 mL [facility] ([facility]) Medications Medication Brand Name Start Date Product Form Dose Route Admi nistrative Instructions Pharmacy Instructions Status Indications Reaction Description Data Source(s) Levothyroxine Sodium 0.137 MG Oral Tablet Levothyroxine Sodi um 11/17/2020 12:00:00 AM EST ORAL active [facility] ([facility]) Ergocalciferol 49381 UNT Oral Capsule Vitamin D (Ergocalcife rol) 10/21/2020 12:00:00 AM EST active [facility] ([facility]) Cholecalciferol 2000 UNT Oral Tablet Vitamin D3 Super Streng th 08/02/2020 12:00:00 AM EDT ORAL active [facility] ([facility]) Insurance Providers Payer name Policy type / Coverage type Policy ID Covered green party ID Covered green party's relationship to buckner Policy Buckner Plan Information [employer] [place] P[place] 302/307 [id number] SP [id number] [employer] [place] P[place] 302/[id number] SP [id number] [place] [employer] [id number] FA2 [id number] [facility] [id number] FA2 [id number] [employer] [place] O [id number] C [id number] [facility] O [id number] S [id number] Problems, Conditions, and Diagnoses Code Display Name Description Problem Type Effective Dates Data Source(s) 49981866 Vitamin D deficiency Vitamin D deficiency Problem 10/21/2020 12:00:00 AM EST [facility] ([facility]) [id number] Hypothyroidism Hypothyroidism Problem 07/21/2020 12:00: 00 AM EDT [facility] ([facility]) Results ID Date Data Source [id number] 11/13/2020 08:48:00 AM EST [facility] ([facility]) Name Value Range Interpretation Code Description Data Katina rce(s) Supporting Document(s) Thryoglobulin Antibodies (Brad) 2.0 IU/ml 0.0-0.9 Above high wilman l [facility] ([facility]) Thyroglobulin Antibody measured by [facility] [place] [facility] Thyroglobulin May 7.0 ng/mL Normal (applies to non-numeri c results) [facility] ([facility]) <content>This test was developed and its performance [...] 2.0 ng/mL.</content>
<content>Performed at: [facility]</content>
<content>[address] [place] [address] [phone]</content>
<content>Granite Polisher: Janice Gan MD, Phone: [phone]</content>
<content>Performed at: [facility]</content>
<content>[address] [place] [address] [phone]</content>
<content>Granite Polisher: Douglas Hooker MD, Phone: [phone]</content>
<content></content> ID Date Data Source [id number] 11/13/2020 08:48:00 AM EST [facility] ([facility]) Name Value Range Interpretation Code Description Data Katina rce(s) Supporting Document(s) Thyroperoxidase Ab [Units/volume] in Serum or Plasma Laboratory test result Above high normal [facility] ([facility]) ID Date Data Source [id number] 11/13/2020 08:48:00 AM EST [facility] ([facility]) Name Value Range Interpretation Code Description Data Katina rce(s) Supporting Document(s) Thyroid Stimulating Hormone 0.047 uIU/ML 0.358-3.740 Below low normal [facility] ([facility]) Free T4 1.37 ng/dL 0.76-1.46 Normal (applies to non-numeric resul ts) [facility] ([facility]) ID Date Data Source [id number] 11/13/2020 08:48:00 AM EST [facility] ([facility]) Name Value Range Interpretation Code Description Data Katina rce(s) Supporting Document(s) Blood Urea Nitrogen 10 mg/dL 7-18 Normal (applies to non-nume yessica results) [facility] ([facility]) Glucose, Fasting 95 mg/dL 70-100 Normal (applies to non-numeric results) [facility] ([facility]) Glomerular Filtration Rate Laboratory test result Normal (applies to non- numeric results) [facility] ([facility]) <content>Units are mL/min/1.73 m2</content>
<content></content>
<content>Chronic Kidney Disease Staging per NKF:</content>
<content></content>
<content>Stage I & II GFR >=60 Normal to Mildly Decreased</content>
<content>Stage III GFR 30- 59 Moderately Decreased</content>
<content>Stage IV GFR 15-29 Severely Decreased</content>
<content>Stage V GFR <15 Very Little GFR Left</content>
<content>ESRD GFR <15 on CARTOGRAPHY SUPERVISOR</content>
<content></content> Sodium Level 138 meq/L 136-145 Normal (applies to non-numeric res ults) [facility] ([facility]) Creatinine For GFR 0.82 mg/dL 0.55-1.30 Normal (applies to non -numeric results) [facility] ([facility]) Potassium Serum 4.3 meq/L 3.5-5.1 Normal (applies to non-numeric results) [facility] ([facility]) Chloride Level 107 meq/L 98-107 Normal (applies to non-numeric r esults) [facility] ([facility]) Carbon Dioxide Level 24 meq/L 21-32 Normal (applies to non-num shaw results) [facility] ([facility]) Calcium Level 9.3 mg/dL 8.5-10.1 Normal (applies to non-numeric re sults) [facility] ([facility]) Anion Gap 7 meq/L 8-16 Below low normal [facility] ( [facility]) Alkaline Phosphatase 68 U/L 45-117 Normal (applies to non-num shaw results) [facility] ([facility]) Ast/Sgot 17 U/L 7-37 Normal (applies to non-numeric resul ts) [facility] ([facility]) Alt/SGPT 26 U/L 12-78 Normal (applies to non-numeric resul ts) [facility] ([facility]) Bilirubin,Total 0.4 mg/dL 0.2-1.0 Normal (applies to non-numeric results) [facility] ([facility]) Total Protein 6.8 GM/DL 6.4-8.2 Normal (applies to non-numeric re sults) [facility] ([facility]) Albumin 3.6 GM/DL 3.2-5.2 Normal (applies to non-numeric resul ts) [facility] ([facility]) Albumin/Globulin Ratio 1.1 1.2-2.2 Below low normal [facility] ([facility]) ID Date Data Source [id number] 11/13/2020 08:48:00 AM EST [facility] ([facility]) Name Value Range Interpretation Code Description Data Katina rce(s) Supporting Document(s) White Blood Count 4.5 10 4.0-10.0 Normal (applies to non-numeri c results) [facility] ([facility]) Hematocrit 41.8 % 36.0-47.0 Normal (applies to non-numeric resul ts) [facility] ([facility]) Hemoglobin 13.9 g/dL 12.0-15.5 Normal (applies to non-numeric resul ts) [facility] ([facility]) Red Blood Count 4.82 10 4.00-5.40 Normal (applies to non-numeric results) [facility] ([facility]) Mean Corpuscular HGB Conc 33.3 g/dL 32.0-36.5 Normal (applies to non-numeric results) [facility] ([facility]) Mean Corpuscular Volume 86.7 fl 80.0-96.0 Normal ( applies to non-numeric results) [facility] ([facility]) Mean Corpuscular Hemoglobin 28.8 pg 27.0-33.0 Norm al (applies to non-numeric results) [facility] ([facility]) Neutrophils % 49.1 % 36.0-66.0 Normal (applies to non-numeric re sults) [facility] ([facility]) Red Cell Distribution Width 12.5 % 11.5-14.5 Norm al (applies to non-numeric results) [facility] ([facility]) Platelet Count, Automated 263 10 150-450 Normal (applies to non-numeric results) [facility] ([facility]) Eos % 1.3 % 0.0-3.0 Normal (applies to non-numeric resul ts) [facility] ([facility]) Lymph % 40.8 % 24.0-44.0 Normal (applies to non-numeric resul ts) [facility] ([facility]) [place] % 8.2 % 0.0-5.0 Above high normal [facility] ([facility]) Baso % 0.4 % 0.0-1.0 Normal (applies to non-numeric resul ts) [facility] ([facility]) Immature Granulocyte % 0.2 % 0-3.0 Normal (applies to non-n umeric results) [facility] ([facility]) Nucleated Red Blood Cell % 0.0 % 0-0 Normal (applies to n on-numeric results) [facility] ([facility]) Lymph # 1.8 10 1.5-5.0 Normal (applies to non-numeric resul ts) [facility] ([facility]) [place] # 0.4 10 0.0-0.8 Normal (applies to non-numeric resul ts) [facility] ([facility]) Neutrophils # 2.2 10 1.5-8.5 Normal (applies to non-numeric re sults) [facility] ([facility]) Eos # 0.1 10 0.0-0.5 Normal (applies to non-numeric resul ts) [facility] ([facility]) Baso # 0.0 10 0.0-0.2 Normal (applies to non-numeric resul ts) [facility] ([facility]) ID Date Data Source [id number] 09/08/2020 08:20:00 AM EST [facility]) Name Value Range Interpretation Code Description Data Katina rce(s) Supporting Document(s) SARS-CoV-2 (COVID-19) RNA [Presence] in Respiratory specimen by LOPEZ with probe detection not detected not detected Sars Cov 2 RNA [facility]) ID Date Data Source [id number] 09/08/2020 08:20:00 AM [facility] Name Value Range Interpretation Code Description Data Katina rce(s) Supporting Document(s) SARS-CoV-2 (COVID-19) RNA [Presence] in Respiratory specimen by LOPEZ with probe detection not detected not detected Sars Cov 2 RNA [facility]) ID Date Data Source [id number] 08/02/2020 03:16:00 PM EDT [facility] ([facility]) Name Value Range Interpretation Code Description Data Katina rce(s) Supporting Document(s) Laboratory test finding (navigational concept) Laboratory test result [facility] ([facility]) ID Date Data Source [id number] 08/02/2020 03:16:00 PM EDT [facility] ([facility]) Name Value Range Interpretation Code Description Data Katina rce(s) Supporting Document(s) Chlamydia trachomatis rRNA [Presence] in Unspecified specimen by Probe and target amplification method Laboratory test result Normal (a pplies to non- numeric results) [facility] ([facility]) Neisseria gonorrhoeae rRNA [Presence] in Unspecified specimen by Probe and target amplification method Laboratory test result Normal (a pplies to non- numeric results) [facility] ([facility]) Comment Laboratory test result [facility] ([facility]) The analytical performance characteristi cs of this assay, when used to test SurePath(TM) specimens have been determined by [employer]. The modifications have not been cleared or approved by the FDA. This assay has been validated pursuant to the CLIA regulations and is used for clinical purposes. For additional information, please refer to https://education.[employer].GOOM/faq/USI925 (This link is being provided for informa tion/ educational purposes only.) ID Date Data Source [id number] 08/02/2020 03:16:00 PM EDT [facility] ([facility]) Name Value Range Interpretation Code Description Data Katina rce(s) Supporting Document(s) Service comment Laboratory test result Normal (a pplies to non-numeric results) [facility] ([facility]) Date of previous PAP smear Laboratory test result Normal (applies to non- numeric results) [facility]) None given Last menstrual period start date Laboratory test result Normal (applies to non-numeric results) [facility]) None given Clinical information Laboratory test result Norm al (applies to non-numeric results) [facility]) None given Specimen source [Identifier] in Cervical or vaginal smear or scraping by Cyto stain Laboratory test result Normal (applies to non-numeric results) [facility] ([facility]) Cervix, Endocervix Date of previous biopsy Laboratory test result N ormal (applies to non-numeric results) [facility] ([facility]) Statement of adequacy [Interpretation] o f Cervical or vaginal smear or scraping by Cyto stain Laboratory test result Normal (applies to non-nu meric results) [facility]) Satisfactory for evaluation. Endocervical/transformation zone component present. Microscopic observation [Identifier] in Cervix by Cyto stain Laboratory test result Normal (applies to non-numeric results) [facility] ([facility]) Negative for intraepithelial lesion or m alignancy. General categories [Interpretation] of C ervical or vaginal smear or scraping by Cyto stain Laboratory test result Normal (applies to non-numeric results) [facility] ([facility]) Microorganism identified in Cervical or vaginal smear or scraping by Cyto stain Laboratory test result Normal (applies to non-numeric results) [facility]) Ophthalmic Medical Technologist who read Cyto stain of Cervical or vaginal smear or scraping Laboratory test result Normal (applies to non-numeric results) [facility]) BH, CT(ASCP) CT screening location: [facility], [address] [place] [address], [place] [address]. Cytology study comment Cervical or vaginal smear or sc raping Cyto stain Laboratory test result Normal (applies to non-numeric results) [facility] ([facility]) This Pap test has been evaluated with [employer] technology. Comment Laboratory test result [facility] ([facility]) EXPLANATORY NOTE: The Pap is a screening test for cervical cancer. It is not a diagnostic test and is subject to false negative and false positive results. It is most reliable when a satisfactory sample, regularly obtained, is submitted with relevant clinical findings and history, and when the Pap result is evaluated along with historic and current clinical information. Ophthalmic Medical Technologist who read Cyto stain of Cervical or vaginal smear or scraping Laboratory test result Normal (applies to non-numeric results) [facility] ([facility]) Pathologist who read Cyto stain of Cervical or vaginal smear or scraping Laboratory test result Normal (applies to non-numeric results) [facility] ([facility]) ID Date Data Source [id number] 08/02/2020 03:16:00 PM EDT [facility] ([facility]) Name Value Range Interpretation Code Description Data Katina rce(s) Supporting Document(s) Service comment Laboratory test result [facility] ([facility]) This order for age-based cervical cancer and STI screening follows ACOG guidelines(PB 168, 140, GFP999). See individual assays for performing site location. ID Date Data Source [id number] 07/31/2020 08:58:00 AM EDT [facility] ([facility]) Name Value Range Interpretation Code Description Data Katina rce(s) Supporting Document(s) Thyroid Stimulating Hormone 0.916 uIU/ML 0.358-3.740 Norm al (applies to non- numeric results) [facility] ([facility]) Free T4 1.27 ng/dL 0.76-1.46 Normal (applies to non-numeric resul ts) [facility] ([facility]) ID Date Data Source [id number] 07/31/2020 08:58:00 AM EDT [facility] ([facility]) Name Value Range Interpretation Code Description Data Katina rce(s) Supporting Document(s) Calcidiol [Mass/volume] in Serum or Plasma 28.0 ng/mL 30.0- 100.0 Below low normal [facility] ([facility]) ID Date Data Source [id number] 07/31/2020 08:58:00 AM EDT [facility] ([facility]) Name Value Range Interpretation Code Description Data Katina rce(s) Supporting Document(s) Glucose, Fasting 94 mg/dL 70-100 Normal (applies to non-numeric results) [facility] ([facility]) Creatinine For GFR 0.76 mg/dL 0.55-1.30 Normal (applies to non -numeric results) [facility] ([facility]) Blood Urea Nitrogen 13 mg/dL 7-18 Normal (applies to non-nume yessica results) [facility] ([facility]) Glomerular Filtration Rate Laboratory test result Normal (applies to non- numeric results) [facility] ([facility]) <content>Units are mL/min/1.73 m2</content>
<content></content>
<content>Chronic Kidney Disease Staging per NKF:</content>
<content></content>
<content>Stage I & II GFR >=60 Normal to Mildly Decreased</content>
<content>Stage III GFR 30- 59 Moderately Decreased</content>
<content>Stage IV GFR 15-29 Severely Decreased</content>
<content>Stage V GFR <15 Very Little GFR Left</content>
<content>ESRD GFR <15 on CARTOGRAPHY SUPERVISOR</content>
<content></content> Potassium Serum 4.3 meq/L 3.5-5.1 Normal (applies to non-numeric results) [facility] ([facility]) Sodium Level 141 meq/L 136-145 Normal (applies to non-numeric res ults) [facility] ([facility]) Carbon Dioxide Level 26 meq/L 21-32 Normal (applies to non-num shaw results) [facility] ([facility]) Chloride Level 109 meq/L 98-107 Above high normal [facility] ([facility]) Anion Gap 6 meq/L 8-16 Below low normal [facility] ( [facility]) Ast/Sgot 15 U/L 7-37 Normal (applies to non-numeric resul ts) [facility] ([facility]) Calcium Level 9.0 mg/dL 8.5-10.1 Normal (applies to non-numeric re sults) [facility] ([facility]) Alt/SGPT 27 U/L 12-78 Normal (applies to non-numeric resul ts) [facility] ([facility]) Total Protein 6.9 GM/DL 6.4-8.2 Normal (applies to non-numeric re sults) [facility] ([facility]) Alkaline Phosphatase 73 U/L 45-117 Normal (applies to non-num shaw results) [facility] ([facility]) Bilirubin,Total 0.3 mg/dL 0.2-1.0 Normal (applies to non-numeric results) [facility] ([facility]) Albumin 3.4 GM/DL 3.2-5.2 Normal (applies to non-numeric resul ts) [facility] ([facility]) Albumin/Globulin Ratio 1.0 1.2-2.2 Below low normal [facility] ([facility]) ID Date Data Source [id number] 07/31/2020 08:58:00 AM EDT [facility] ([facility]) Name Value Range Interpretation Code Description Data Katina rce(s) Supporting Document(s) White Blood Count 5.2 10 4.0-10.0 Normal (applies to non-numeri c results) [facility] ([facility]) Red Blood Count 4.66 10 4.00-5.40 Normal (applies to non-numeric results) [facility] ([facility]) Hematocrit 40.1 % 36.0-47.0 Normal (applies to non-numeric resul ts) [facility] ([facility]) Hemoglobin 13.5 g/dL 12.0-15.5 Normal (applies to non-numeric resul ts) [facility] ([facility]) Mean Corpuscular Hemoglobin 29.0 pg 27.0-33.0 Norm al (applies to non-numeric results) [facility] ([facility]) Mean Corpuscular Volume 86.1 fl 80.0-96.0 Normal ( applies to non-numeric results) [facility] ([facility]) Red Cell Distribution Width 12.5 % 11.5-14.5 Norm al (applies to non-numeric results) [facility] ([facility]) Platelet Count, Automated 264 10 150-450 Normal (applies to non-numeric results) [facility] ([facility]) Mean Corpuscular HGB Conc 33.7 g/dL 32.0-36.5 Normal (applies to non-numeric results) [facility] ([facility]) [place] % 7.9 % 0.0-5.0 Above high normal [facility] ([facility]) Neutrophils % 52.1 % 36.0-66.0 Normal (applies to non-numeric re sults) [facility] ([facility]) Lymph % 36.9 % 24.0-44.0 Normal (applies to non-numeric resul ts) [facility] ([facility]) Eos % 1.7 % 0.0-3.0 Normal (applies to non-numeric resul ts) [facility] ([facility]) Immature Granulocyte % 1.0 % 0-3.0 Normal (applies to non-n umeric results) [facility] ([facility]) Baso % 0.4 % 0.0-1.0 Normal (applies to non-numeric resul ts) [facility] ([facility]) Lymph # 1.9 10 1.5-5.0 Normal (applies to non-numeric resul ts) [facility] ([facility]) Neutrophils # 2.7 10 1.5-8.5 Normal (applies to non-numeric re sults) [facility] ([facility]) Nucleated Red Blood Cell % 0.0 % 0-0 Normal (applies to n on-numeric results) [facility] ([facility]) Baso # 0.0 10 0.0-0.2 Normal (applies to non-numeric resul ts) [facility] ([facility]) [place] # 0.4 10 0.0-0.8 Normal (applies to non-numeric resul ts) [facility] ([facility]) Eos # 0.1 10 0.0-0.5 Normal (applies to non-numeric resul ts) [facility] ([facility]) ID Date Data Source [id number] 07/29/2020 12:00:00 AM EDT [facility] Patient Name: ANAMIKA LOYA [id number] Date of : 1995[place] [id number] Date of Exam: 07/29/2020PH#: Fax: [phone] EXAM: US HEAD AND NECK SOFT TISSUECLINICAL INFORMATION: Neal's, thyroiditis and hypothyroidism.Priors: We have made attempts to obtain the prior examination from [facility]. The attempts have been fruitless. [...] adiscrete nodule at this time.Accredited by the [employer] in General Ultrasound.HEATHER Zambrano/Enma you for referring ANAMIKA Rupesh RODRIGUEZ to our office. Electronically Signed - SILVESTRE MARCOS DO 08/04/20 16:51 Name Value Range Interpretation Code Description Data Katina rce(s) Supporting Document(s) Procedure Social History Code Duration Value Status Description Data Source(s ) Smoking 08/02/2020 12:00:00 AM EDT Patient has never smoked co mpleted Patient has never smoked [facility] ([facility]) Vital Signs ID Date Data Source UNK Name Value Range Interpretation Code Description Data Source(s) [place] body weight 140 [lb_av] 140 [lb_av] [facility] ([facility]) Oxygen saturation in Arterial blood by Pulse oximetry 97 % 97 % [facility] ([facility]) Body temperature 99.0 [degF] 99.0 [degF] [facility] ([facility]) Respiratory rate 18 /min 18 /min [facility] ( [facility]) Heart rate 89 /min 89 /min [facility] ([facility]) Body mass index (BMI) [Ratio] 34.6 kg/m2 34.6 k g/m2 [facility] ([facility]) Body weight 230.12 [lb_av] 230.12 [lb_av] [facility] ([facility]) Body height 68.4 [in_i] 68.4 [in_i] [facility] ([facility]) 5'8.40" Diastolic blood pressure 86 mm[Hg] 86 mm[Hg] [facility] ([facility]) Systolic blood pressure 130 mm[Hg] 130 mm[Hg] [facility] ([facility]) [place] body weight 140 [lb_av] 140 [lb_av] [facility] ([facility]) Oxygen saturation in Arterial blood by Pulse oximetry 98 % 98 % [facility] ([facility]) Body temperature 98.1 [degF] 98.1 [degF] [facility] ([facility]) Respiratory rate 16 /min 16 /min [facility] ( [facility]) Heart rate 75 /min 75 /min [facility] ([facility]) Body mass index (BMI) [Ratio] 33.7 kg/m2 33.7 k g/m2 [facility] ([facility]) Body weight 224.12 [lb_av] 224.12 [lb_av] [facility] ([facility]) Body height 68.4 [in_i] 68.4 [in_i] [facility] ([facility]) 5'8.40" Diastolic blood pressure 80 mm[Hg] 80 mm[Hg] [facility] ([facility]) Systolic blood pressure 128 mm[Hg] 128 mm[Hg] [facility] ([facility]) [place] body weight 140 [lb_av] 140 [lb_av] [facility] ([facility]) Oxygen saturation in Arterial blood by Pulse oximetry 98 % 98 % [facility] Body temperature 99.8 [degF] 99.8 [degF] [facility] ([facility]) Respiratory rate 16 /min 16 /min [facility] ( [facility]) Heart rate 79 /min 79 /min [facility] ([facility]) Body mass index (BMI) [Ratio] 33.7 kg/m2 33.7 k g/m2 [facility] ([facility]) Body weight 224.12 [lb_av] 224.12 [lb_av] [facility] ([facility]) Body height 68.4 [in_i] 68.4 [in_i] [facility] ([facility]) 5'8.40" Diastolic blood pressure 80 mm[Hg] 80 mm[Hg] [facility] ([facility]) Systolic blood pressure 118 mm[Hg] 118 mm[Hg] Favi[facility] ([facility])
[2020-12-03] MEDS ORDERED: CIPR-249 PO (23:09)
[2020-12-03] MEDS ORDERED: ONDA4TAB6 PO (23:09)
[2020-12-03 23:14] VITALS: BP 134/81
[2020-12-03] MEDS ORDERED: CIPROFLOXACIN 500MG TABLET PO ONE (23:15)
== END 2020-12-03 23:37 | disposition home or self-care (01) ==
LOC: M ED 19:22
DX: R11.0 Nausea (principal); R19.7 Diarrhea, unspecified; E03.9 Hypothyroidism, unspecified; Z79.899 Other long term (current) drug therapy; Z88.0 Allergy status to penicillin; Z88.2 Allergy status to sulfonamides

== ENCOUNTER → 2020-12-15 | Outpatient (CLI) | payer BC ==
[~2020-12-15] MED LIST changes: +CIPR-249 PO; +DROS3TAB; +GASTROGRAFIN SOLUTION 30ML (Q9963) As Ordered ONE; +ISOVUE-370 76% 100ML VIAL As Ordered ONE; +LEVO150T7; +ONDA-83; +ONDA4TAB6 PO; +VALA500T5
[2020-12-15 10:29] LABS: BASO % 0.4 % (0.0-1.0); EOS # 0.1 10^3/uL (0.0-0.5); EOS % 1.7 % (0.0-3.0); HEMATOCRIT 46.7 % (36.0-47.0); HEMOGLOBIN 15.7 g/dl (12.0-15.5); LYMPH # 1.7 10^3/uL (1.5-5.0); LYMPH % 36.8 % (24.0-44.0); MEAN CORPUSCULAR HEMOGLOBIN 28.3 pg (27.0-33.0); MEAN CORPUSCULAR HGB CONC 33.6 g/dl (32.0-36.5); MEAN CORPUSCULAR VOLUME 84.3 fl (80.0-96.0); MONO # 0.5 10^3/uL (0.0-0.8); MONO % 9.7 % (0.0-5.0); NEUTROPHILS # 2.4 10^3/uL (1.5-8.5); PLATELET COUNT, AUTOMATED 258 10^3/uL (150-450); RED BLOOD COUNT 5.54 10^6/uL (4.00-5.40); WHITE BLOOD COUNT 4.7 10^3/uL (4.0-10.0)
[2020-12-15 10:53] LABS: ALBUMIN 4.2 GM/DL (3.2-5.2); ALT/SGPT 52 U/L (12-78); BILIRUBIN,DIRECT 0.1 MG/DL (0.0-0.2); BILIRUBIN,TOTAL 0.3 MG/DL (0.2-1.0); BLOOD UREA NITROGEN 10 MG/DL (7-18); CALCIUM LEVEL 9.6 MG/DL (8.5-10.1); CARBON DIOXIDE LEVEL 26 MEQ/L (21-32); CHLORIDE LEVEL 105 MEQ/L (98-107); CREATININE FOR GFR 1.02 MG/DL (0.55-1.30); GLOMERULAR FILTRATION RATE > 60.0 (>60); GLUCOSE, FASTING 97 MG/DL (70-100); LIPASE 99 U/L (73-393); SODIUM LEVEL 138 MEQ/L (136-145); TOTAL PROTEIN 7.9 GM/DL (6.4-8.2)
--- NOTE | 2020-12-15 11:48 | REP ---
INDICATION: DIARRHEA, GENERALIZED ABD PAIN/ LABS FIRST. COMPARISON: None. TECHNIQUE: Helical scanning is acquired and 3 mm axial images re-formatted. Coronal and sagittal MPR images are generated. The CT contrast enhancement dose is 100 mL of intravenous Isovue 370. FINDINGS: Digital preliminary editorial project manager radiograph is unremarkable. The lung bases are clear on axial CT images. The liver and spleen are normal in size homogeneous in texture. No abnormality is noted in the gallbladder or the pancreas. Normal adrenal glands are observed bilaterally. The kidneys enhance symmetrically and are morphologically intact. No retroperitoneal mass or adenopathy is observed. There are a few normal-sized lymph nodes in the retroperitoneum. Scattered mesenteric lymph nodes are noted. The largest of these is in the right lower quadrant. None of these pathologically enlarged. The largest has a short axis dimension of 7 mm. A normal appendix is seen coursing along the right superior pelvic sidewall. Small and large intestinal bowel loops are unremarkable in the abdomen and pelvis. No free air or free fluid is seen. The uterus is retroflexed and tip to the right but unremarkable. No ovarian abnormality is seen on either side. No abdominal wall defect is observed. Bone window settings show no bony destructive lesion. IMPRESSION: No abdominal or pelvic abnormality seen. Scattered normal sized mesenteric lymph nodes raise question of mesenteric adenitis. No evidence of obi adenopathy. Normal appendix. <Electronically signed by Haris Busch > 12/15/20 [id number]
== END ==
LOC: M RAD 09:25
PROVIDERS: ATTEND Physician Assistant
DX: R10.84 Generalized abdominal pain (principal)
CPT/HCPCS: 36415; 74177; 80048; 80076; 83690; 85025; 87507; Q9963; Q9967

== ENCOUNTER → 2021-05-30 | Outpatient (CLI) | payer BC ==
[~2021-05-30] MED LIST changes: -GASTROGRAFIN SOLUTION 30ML (Q9963) As Ordered ONE; -ISOVUE-370 76% 100ML VIAL As Ordered ONE
[2021-05-30 10:33] LABS: BASO % 0.6 % (0.0-1.0); EOS # 0.1 10^3/uL (0.0-0.5); EOS % 1.7 % (0.0-3.0); HEMATOCRIT 41.5 % (36.0-47.0); HEMOGLOBIN 14.1 g/dl (12.0-15.5); LYMPH % 37.2 % (24.0-44.0); MEAN CORPUSCULAR HEMOGLOBIN 29.8 pg (27.0-33.0); MEAN CORPUSCULAR VOLUME 87.7 fl (80.0-96.0); MONO # 0.3 10^3/uL (0.0-0.8); MONO % 6.3 % (2.0-8.0); NEUTROPHILS # 2.9 10^3/uL (1.5-8.5); NEUTROPHILS % 53.6 % (36.0-66.0); PLATELET COUNT, AUTOMATED 255 10^3/uL (150-450); RED BLOOD COUNT 4.73 10^6/uL (4.00-5.40); WHITE BLOOD COUNT 5.4 10^3/uL (4.0-10.0)
[2021-05-30 11:20] LABS: ALBUMIN 3.5 GM/DL (3.2-5.2); ALT/SGPT 20 U/L (12-78); BILIRUBIN,TOTAL 0.4 MG/DL (0.2-1.0); BLOOD UREA NITROGEN 13 MG/DL (7-18); CALCIUM LEVEL 9.2 MG/DL (8.5-10.1); CARBON DIOXIDE LEVEL 23 MEQ/L (21-32); CHLORIDE LEVEL 108 MEQ/L (98-107); CREATININE FOR GFR 0.79 MG/DL (0.55-1.30); FREE T4 1.02 NG/DL (0.76-1.46); GLOMERULAR FILTRATION RATE > 60.0 (>60); GLUCOSE, FASTING 91 MG/DL (70-100); POTASSIUM SERUM 4.3 MEQ/L (3.5-5.1); SODIUM LEVEL 140 MEQ/L (136-145); TOTAL 25(OH) VITAMIN D 19.3 NG/ML (30.0-100.0); TOTAL PROTEIN 7.1 GM/DL (6.4-8.2)
== END ==
LOC: M LAB 09:25
PROVIDERS: ATTEND Physician Assistant
DX: E55.9 Vitamin D deficiency, unspecified (principal); E03.9 Hypothyroidism, unspecified

== ENCOUNTER → 2021-11-20 | Outpatient (CLI) | payer OTHER ==
[2021-11-20 09:35] LABS: BASO % 0.6 % (0.0-1.0); EOS # 0.1 10^3/uL (0.0-0.5); EOS % 1.3 % (0.0-3.0); HEMATOCRIT 39.2 % (36.0-47.0); HEMOGLOBIN 13.2 g/dl (12.0-15.5); LYMPH # 2.1 10^3/uL (1.5-5.0); LYMPH % 30.1 % (24.0-44.0); MEAN CORPUSCULAR HEMOGLOBIN 29.5 pg (27.0-33.0); MEAN CORPUSCULAR HGB CONC 33.7 g/dl (32.0-36.5); MEAN CORPUSCULAR VOLUME 87.5 fl (80.0-96.0); MONO # 0.7 10^3/uL (0.0-0.8); MONO % 9.3 % (2.0-8.0); NEUTROPHILS % 57.4 % (36.0-66.0); PLATELET COUNT, AUTOMATED 270 10^3/uL (150-450); RED BLOOD COUNT 4.48 10^6/uL (4.00-5.40)
[2021-11-20 10:19] LABS: ALBUMIN 3.7 GM/DL (3.2-5.2); ALT/SGPT 28 U/L (12-78); BILIRUBIN,TOTAL 0.2 MG/DL (0.2-1.0); BLOOD UREA NITROGEN 12 MG/DL (7-18); CALCIUM LEVEL 9.1 MG/DL (8.5-10.1); CARBON DIOXIDE LEVEL 26 MEQ/L (21-32); CHLORIDE LEVEL 108 MEQ/L (98-107); CREATININE FOR GFR 0.78 MG/DL (0.55-1.30); FREE T4 1.07 NG/DL (0.76-1.46); GLOMERULAR FILTRATION RATE > 60.0 (>60); GLUCOSE, FASTING 100 MG/DL (70-100); POTASSIUM SERUM 4.1 MEQ/L (3.5-5.1); SODIUM LEVEL 139 MEQ/L (136-145); TOTAL PROTEIN 6.6 GM/DL (6.4-8.2)
[2021-11-20 11:18] LABS: HEMOGLOBIN A1c 5.1 %
[2021-11-21 10:16] LABS: TOTAL 25(OH) VITAMIN D 27.8 NG/ML (30.0-100.0)
[2021-11-25 16:09] LABS: INSULIN FREE 12 uU/mL (.); INSULIN TOTAL2 12 uU/mL (.)
== END ==
LOC: M LAB 09:02
PROVIDERS: ATTEND Physician Assistant
DX: E03.9 Hypothyroidism, unspecified (principal); E66.9 Obesity, unspecified; R53.83 Other fatigue

== ENCOUNTER → 2022-08-08 | Outpatient (CLI) | payer OTHER | LOC: M WHC 07:38 | PROVIDERS: ATTEND Physician Assistant Medical | DX: E06.3 Autoimmune thyroiditis (principal); E04.2 Nontoxic multinodular goiter ==

== ENCOUNTER → 2023-07-14 | Outpatient (CLI) | payer OTHER ==
[2023-07-14 10:03] LABS: HEMATOCRIT 39.9 % (36.0-47.0); HEMOGLOBIN 13.3 g/dl (12.0-15.5); MEAN CORPUSCULAR HEMOGLOBIN 29.4 pg (27.0-33.0); MEAN CORPUSCULAR HGB CONC 33.3 g/dl (32.0-36.5); MEAN CORPUSCULAR VOLUME 88.1 fl (80.0-96.0); PLATELET COUNT, AUTOMATED 262 10^3/uL (150-450); RED BLOOD COUNT 4.53 10^6/uL (4.00-5.40); WHITE BLOOD COUNT 5.6 10^3/uL (4.0-10.0)
[2023-07-14 10:31] LABS: TOTAL IRON BINDING CAPACITY 389 UG/DL (250-425)
[2023-07-14 10:32] LABS: IRON (FE) 53 UG/DL (50-170); PERCENT SATURATION 13.6 % (13.2-45.0)
[2023-07-14 10:50] LABS: ALBUMIN 3.9 G/DL (3.2-5.2); ALKALINE PHOSPHATASE 76 U/L (46-116); ALT/SGPT 15 U/L (7.0-40); AST/SGOT < 8 U/L (<34); BILIRUBIN,TOTAL 0.4 MG/DL (0.3-1.2); BLOOD UREA NITROGEN 13 MG/DL (9-23); CALCIUM LEVEL 9.5 MG/DL (8.5-10.1); CARBON DIOXIDE LEVEL 28 MMOL/L (20-31); CHLORIDE LEVEL 106 MMOL/L (98-107); CHOLESTEROL LEVEL 159 MG/DL (<200); CHOLESTEROL RISK RATIO 2.81 (<5); CREATININE FOR GFR 0.75 MG/DL (0.55-1.30); FERRITIN 13.2 NG/ML (7.3-270.7); FREE T4 1.24 NG/DL (0.89-1.76); GLOMERULAR FILTRATION RATE > 60.0 (>60); GLUCOSE, FASTING 94 MG/DL (60-100); HDL CHOLESTEROL 56.5 MG/DL (>40); LDL CHOLESTEROL 84.5 MG/DL (<100); NON-HDL-C 102.5 MG/DL; POTASSIUM SERUM 4.5 MMOL/L (3.5-5.1); SODIUM LEVEL 140 MMOL/L (136-145); TOTAL 25(OH) VITAMIN D 26.8 NG/ML (20.0-100.0); TOTAL PROTEIN 6.9 G/DL (5.7-8.2); TRIGLYCERIDES LEVEL 90 MG/DL (<150)
[2023-07-14 10:52] LABS: THYROID STIMULATING HORMONE 3.284 uIU/ML (0.55-4.78)
== END ==
LOC: M LAB 08:42
PROVIDERS: ATTEND Physician Assistant Medical
DX: E55.9 Vitamin D deficiency, unspecified (principal); Z86.39 Personal history of other endocrine, nutritional and metabolic disease; E06.3 Autoimmune thyroiditis; E61.1 Iron deficiency